=== PATIENT | male | born 1995 | race Caucasian/White ===

== ENCOUNTER → 2020-08-10 10:55 | Outpatient (BNVA) | payer OTHER, SELFPAY | PROVIDERS: PCP Internal Medicine | DX: Z13.89 Encounter for screening for other disorder (principal) | CPT/HCPCS: 36415; 82150; 82565; 84450; 84460; 84520; 85025 ==

== ENCOUNTER 2020-08-24 11:01 | Outpatient (REF) | payer OTHER, SELFPAY ==
[2020-08-24 13:42] LABS: Basophils Percent Auto 0.7 % (0-2); Eosinophils Absolute Auto 0.2 X10*3/uL (0.0-0.4); Eosinophils Percent Auto 3.5 % (0-4); Hematocrit 47.2 % (42-52); Hemoglobin 16.4 g/dl (14.0-18.0); Imm Gran Abs Auto 0.01 X10*3/uL (0.00-0.03); Imm Gran Pct Auto 0.2 % (0.0-0.4); Lymphocytes Absolute Auto 1.8 X10*3/uL (1.2-4.9); Lymphocytes Percent Auto 41.5 % (20-40); MANUAL DIFF FLAG NO; Mean Corpuscular HGB Conc 34.7 g/dl (31.0-36.0); Mean Corpuscular Hemoglobin 31.4 pg (27.0-33.0); Mean Corpuscular Volume 90.4 fL (80-98); Mean Platelet Volume 8.7 fL (9.4-12.4); Monocytes Absolute Auto 0.4 X10*3/uL (0.1-1.2); Neutrophils Absolute Auto 1.9 X10*3/uL (2.0-8.3); Neutrophils Percent Auto 44.1 % (45-73); Platelet Count 264 X10*3/uL (160-400); Red Blood Count 5.22 X10*6/uL (4.60-5.80); Red Cell Distribution Width 12.5 % (11.0-16.0); White Blood Count 4.3 X10*3/uL (4.8-10.8)
[2020-08-24 14:47] LABS: Amylase 55 U/L (28-100); Estimated Glomerular Filt Rate > 60
[2020-08-24 14:51] LABS: Alanine Aminotransferase 35 U/L (0-40); Aspartate Amino Transferase 25 U/L (5-37); Blood Urea Nitrogen 14 mg/dL (9-16); Estimated Glomerular Filt Rate > 60
== END 2020-08-24 11:02 | disposition home or self-care (01) ==
LOC: HO.EHI 11:01
PROVIDERS: Physician Assistant Medical; PCP Internal Medicine; Visit Provider Internal Medicine
DX: Z13.89 Encounter for screening for other disorder (principal)
CPT/HCPCS: 36415; 82150; 82565; 84450; 84460; 84520; 85025; 99213

== ENCOUNTER → 2020-09-08 11:00 | Outpatient (BNVA) | payer OTHER, SELFPAY | PROVIDERS: PCP Internal Medicine | DX: Z77.21 Contact with and (suspected) exposure to potentially hazardous body fluids (principal) | CPT/HCPCS: 84450; 84460; 87389; 99211 ==

== ENCOUNTER → 2020-10-27 10:28 | Outpatient (BNVA) | payer OTHER, SELFPAY | PROVIDERS: PCP Internal Medicine | DX: Z77.21 Contact with and (suspected) exposure to potentially hazardous body fluids (principal) | CPT/HCPCS: 84450; 84460; 86803; 87389; 99211 ==

== ENCOUNTER 2021-11-01 15:20 | Emergency (ER) | payer OTHER, SELFPAY ==
--- NOTE | ~2021-11-01 | US_ITS ---
EXAMINATION: US VENOUS ULTRASOUND WITH DOPPLER LOWER EXTREMITY, LEFT CLINICAL INFORMATION: Leg pain rule out DVT. COMPARISON: None TECHNIQUE: Ultrasound of the deep veins is performed from the hip to the calf with compression sonography and color and pulse Doppler assessment. Spectral analysis with color-flow imaging is performed. FINDINGS: There is normal venous compression and respiratory variation and augmented flow. The visualized common femoral vein, superficial femoral vein, profunda femoral vein, popliteal vein, and the trifurcation region shows no evidence of deep venous thrombosis. There is no significant popliteal fossa cyst. If the patient's symptoms persist, followup ultrasound in 5 days 7 days might be of value to exclude proximal propagation from a non-visualized calf vein. US/US venous duplex LE LT IMPRESSION: No DVT demonstrated in the left lower extremity.
[2021-11-01 15:59] VITALS: BP 146/89; PULSE 99; RESP 16; TEMP 36.6; O2SAT 98; BMI 39.5
--- NOTE | 2021-11-01 20:11 | ED.LOWEXIN ---
HPI - Extremity Injury (Lower) General Chief Complaint: Extremity Injury, Lower Stated Complaint: lower left leg pain Time Seen by Provider: 11/01/21 20:03 History of Present Illness HPI Narrative: Patient complains of tingling and occasional numb feeling going down his left lower leg accompanied some pain in the left posterior thigh and knee and lower leg There is no back pain there is no loss of strength or sensation Related Data Previous Rx's Medication Instructions Recorded prednisone 20 mg tablet 60 mg PO DAILY 3 Days #9 tab 11/01/21 Allergies Allergy/AdvReac Type Severity Reaction Status Date / Time No Known Allergies Allergy Verified 11/01/21 16:02 Review of Systems Review of Systems: Positive for left leg pain as well as occasional paresthesias Negatives are no fever no chills no dizziness no weakness no headache no neck pain no chest pain no abdominal pain no back pain no changes to bowel or bladder no dysuria no frequency no incontinence no muscle weakness no loss of sensation Yes all other systems are reviewed and are negative [facility] Past Medical History Source: nursing notes reviewed Medical History (Updated 11/02/21 @ 00:02 by Gilbert Hayes) No known health problems No known health problems Social History Social History Advance Directives: No Advance Directives Information Provided: Yes Physical Exam Vital Signs: Vital Signs: Last Vital Signs Temp 97.9 F 11/01/21 15:59 Pulse 87 11/01/21 20:21 Resp 18 11/01/21 20:21 BP 138/76 11/01/21 20:21 Pulse Ox 99 11/01/21 20:21 BMI result Body Mass Index 39.5 General appearance is no acute distress The head is normocephalic atraumatic Neck is supple nontender The back full range of motion Respiratory no distress Extremities full range of motion x4 Left leg exam there is some tenderness to the posterior thigh and posterior lower leg, skin was intact there is no edema there is normal neurovascular intact distal with good motor and sensation symmetric with the other side, he can walk on tiptoes and he could walk on his heels Neuro no focal motor sensory deficit Course Course Course Narrative: Patient had ultrasound which was negative for DVT, his exam symptoms and history are more consistent with a pinched nerve producing paresthesias He ambulates easily and comfortably and is discharged to follow with his doctor Discharge Plan Discharge Clinical Impression: Left leg pain, Left leg paresthesias Patient Disposition: Home, Self-Care Additional Instructions: Ultrasound did not show any blood clot in her leg For the tingling symptoms follow with primary doctor for further evaluation If you lose strength or control of bowel or bladder or any worse condition or any concerns return to the ER immediately Tingling sensations from a pinched nerve are sometimes helped but prednisone which may reduce inflammation so we are trying prednisone for a few days to see if it helps relieve the tingling sensation If you spend a long time sitting I recommend you get up stretch and move around as that might help relieve the tingling as well Prescriptions: New prednisone 20 mg tablet 60 mg PO DAILY 3 Days Qty: 9 RF: 0 Interventions: ED Discharge Assessment Last Done: 11/01/21 20:22 Discharge Date/Time: 11/01/21 20:23
[2021-11-01] MEDS: predniSONE 20 MG TABLET 60 MG PO (20:17)
[2021-11-01 20:21] VITALS: BP 138/76; PULSE 87; RESP 18; O2SAT 99
== END 2021-11-01 20:23 | disposition home or self-care (01) ==
PROVIDERS: Emergency Provider Emergency Medicine Emergency Medical Services
DX: M79.605 Pain in left leg (principal); R20.2 Paresthesia of skin
CPT/HCPCS: 93971; 99284

== ENCOUNTER 2021-11-05 14:56 | Emergency (ER) | payer OTHER, SELFPAY ==
--- NOTE | ~2021-11-05 | CT_ITS ---
EXAMINATION: CT ABDOMEN AND PELVIS WITH CONTRAST CLINICAL INFORMATION: Epigastric right upper quadrant pain COMPARISON: None TECHNIQUE: Multidetector volumetric images were obtained from the superior aspect of the liver through the pubic symphysis following administration 85 mL of Omnipaque 350 intravenous contrast. Sagittal and coronal reformatted images were obtained on the technologist's workstation. Oral contrast: No This CT examination was performed using dose optimization techniques as appropriate, variously including the following: *Automated exposure control *Adjustment of mA and/or kV according to patient size (this includes techniques or standardized protocols for targeted exams where dose is matched to indication/reason for exam; i.e. extremities or head) *Use of iterative reconstruction technique DLP: 1059 mGy-cm FINDINGS: LUNG BASES: The visualized lung bases are unremarkable. LIVER, GALLBLADDER, AND BILIARY TREE: Diffuse hepatic steatosis. No biliary ductal dilatation. Gallbladder distended but normal in appearance. PANCREAS: Unremarkable. SPLEEN: Unremarkable. ADRENAL GLANDS: Unremarkable. KIDNEYS AND URETERS: The kidneys are normal in size, shape, and attenuation. No hydronephrosis, hydroureter, or calculi seen. No perinephric stranding. BLADDER: Unremarkable. GASTROINTESTINAL TRACT: Stomach and small bowel are nondilated. Normal appendix. Scattered colonic diverticulosis without evidence of colitis or diverticulitis. ABDOMINAL WALL: No significant hernia is appreciated. LYMPH NODES: Normal. VASCULAR: Unremarkable. PELVIC VISCERA: Unremarkable. OSSEOUS STRUCTURES: Unremarkable. CT/CT abdomen pelvis w con IMPRESSION: No acute CT findings. Fleischner guidelines were followed.
[2021-11-05 16:24] VITALS: BP 147/91; PULSE 73; RESP 18; TEMP 36.8; O2SAT 100; BMI 39.5
[2021-11-05 21:21] LABS: MANUAL DIFF FLAG NO
[2021-11-05 21:22] LABS: Basophils Percent Auto 0.4 % (0-2); Eosinophils Absolute Auto 0.1 X10*3/uL (0.0-0.4); Eosinophils Percent Auto 1.6 % (0-4); Hematocrit 45.3 % (42.0-52.0); Hemoglobin 15.9 g/dl (14.0-18.0); Imm Gran Abs Auto 0.02 X10*3/uL (0.00-0.03); Imm Gran Pct Auto 0.3 % (0.0-0.4); Lymphocytes Absolute Auto 1.6 X10*3/uL (1.2-4.9); Lymphocytes Percent Auto 20.1 % (20-40); Mean Corpuscular HGB Conc 35.1 g/dl (31.0-36.0); Mean Corpuscular Hemoglobin 31.1 pg (27.0-33.0); Mean Corpuscular Volume 88.6 fL (80.0-98.0); Monocytes Absolute Auto 0.5 X10*3/uL (0.1-1.2); Monocytes Percent Auto 6.1 % (2-11); Neutrophils Absolute Auto 5.5 x10*3/uL (2.0-8.3); Neutrophils Percent Auto 71.5 % (45-73); Platelet Count 216 X10*3/uL (160-400); Red Blood Count 5.11 X10*6/uL (4.60-5.80); Red Cell Distribution Width 12.5 % (11.0-16.0); White Blood Count 7.7 X10*3/uL (4.8-10.8)
[2021-11-05 21:22] LABS: Appearance Urine CLEAR; Color Urine STRAW; Glucose Urine UA NEG (NEG); Leukocyte Esterase Urine NEG (NEG); Nitrite Urine NEG (NEG); Specific Gravity - Urine <= 1.005 (1.005-1.025); Urine Blood NEG (NEG); Urine Ketones NEG (NEG); Urine Protein NEG (NEG-TRACE)
[2021-11-05 21:41] LABS: Alanine Aminotransferase 64 U/L (0-40); Albumin Level 4.4 g/dL (3.5-5.0); Alkaline Phosphatase 51 U/L (39-117); Anion Gap 13 (12-20); Aspartate Amino Transferase 29 U/L (5-37); Bilirubin Total 2.5 mg/dL (0.0-1.0); Blood Urea Nitrogen 11 mg/dL (9-16); Calcium 9.6 mg/dL (8.4-10.2); Carbon Dioxide 27 mmol/L (22-29); Chloride 104 mmol/L (96-108); Creatinine Clr Calc Pharmacy 186.8; Estimated Glomerular Filt Rate > 60; Glucose Random 90 mg/dL (60-115); Lipase 28 U/L (8-78); Sodium 140 mmol/L (135-145); Total Protein 7.4 g/dL (6.5-8.0)
[2021-11-05 21:46] VITALS: BP 137/92; PULSE 89; RESP 16; TEMP 36.7; O2SAT 98
[2021-11-05 21:51] VITALS: BP 114/67; PULSE 58; RESP 12; TEMP 36.1; O2SAT 100
--- NOTE | 2021-11-05 21:52 | ED_ITS ---
HPI - Abdominal Pain General Chief Complaint: Abdominal Pain Stated Complaint: abd pain Time Seen by Provider: 11/05/21 21:44 Source: patient Mode of arrival: ambulatory Limitations: no limitations History of Present Illness HPI narrative: Patient complete emergency room complaining of epigastric and right upper quadrant pain for 24 hours. Patient states that the pain is constant, radiating from the epigastrium towards the right upper quadrant. Patient states that he has not had an appetite since yesterday. Denies vomiting, diarrhea or fever. Patient states that since yesterday he has been laying down in position due to the pain, yesterday the pain was 10, at this moment 05/14. Related Data Previous Rx's Medication Instructions Recorded prednisone 20 mg tablet 60 mg PO DAILY 3 Days #9 tab 11/01/21 omeprazole 20 mg capsule,delayed 20 mg PO DAILY #14 cap 11/05/21 release Allergies Allergy/AdvReac Type Severity Reaction Status Date / Time No Known Allergies Allergy Verified 11/05/21 16:24 Review of Systems Review of Systems Constitutional : No Weight loss, No Fever, No Chills, No Night Sweats, No Fatigue, No Malaise ENT/Mouth : No Hearing loss, No Ear Pain, No Nasal Congestion, No Sinus Pain, No Hoarseness, No sore throat, No Rhinorrhea, No Swallowing Difficulty Eyes: No Eye Pain, No Swelling, No Redness, No Foreign Body, No Discharge, No Vision Changes Cardiovascular : No Chest Pain, No SOB, No Dyspnea on Exertion, No Orthopnea, No Edema, No Palpitations Respiratory : No Cough, No Sputum, No Wheezing, No Smoke Exposure, No Dyspnea Gastrointestinal : No Nausea, No Vomiting, No Diarrhea, No Constipation, complaining of epigastric pain, radiating from the epigastrium to the right upper quadrant. No Hematochezia, No Melena Genitourinary : no irregular bleeding, No Dysuria, No Urinary Frequency, No Hem aturia, No Urinary Incontinence, No Urgency, No Flank Pain, No Urinary Flow Changes, No Hesitancy Musculoskeletal : No joint pain, No Myalgias, No Joint Swelling Skin : No Skin Lesions, No rash Neuro : No Weakness, No Numbness, No Paresthesias, No Loss of Consciousness, No Dizziness, No Headache Psych : No Anxiety/Panic, No Depression, No SI/HI/AH/VH, No Social Issues, Heme/Lymph: No Bruising, No Bleeding,No Lymphadenopathy Endocrine : No Polyuria, No Polydipsia, No Temperature Intolerance Physical Exam Vital Signs: Vital Signs: Last Vital Signs Temp 96.9 F 11/05/21 21:51 Pulse 58 11/05/21 21:51 Resp 16 11/05/21 22:23 BP 114/67 11/05/21 21:51 Pulse Ox 100 11/05/21 21:51 BMI result Body Mass Index 39.5 Const: Other: Appearance: Alert. Oriented X3. No acute distress. Well- appearing, does not seem uncomfortable Eyes: Pupils equal, round and reactive to light. ENT: Pharynx normal. Neck: Normal inspection. Neck supple. No lymph nodes noted. No crepitus CVS: Normal heart rate and rhythm. Pulses normal. Normal S1 and S2 Respiratory: No respiratory distress. Breath sounds normal. No Wheezing. No rales Abdomen: Soft, negative Almeida sign, mild to moderate discomfort on palpation in the epigastric area. No rigidity. No distention. Skin: Skin warm and dry. Normal skin color. Normal skin turgor. Extremities: No lower extremity edema. Lacerations. No Rash Neuro: Oriented X 3. No motor deficit. No sensory deficit. Moving all extermities. No slurred speech. Course Course Course Narrative: I discussed the labs and CT scan with the patient, no acute findings. Patient was given a GI cocktail. Patient likely having gastritis versus peptic ulcer disease. MDM - Abdominal Pain Lab Data Result diagrams: 11/05/21 21:16 11/05/21 21:16 Labs: Lab Results 11/05/21 11/05/21 11/05/21 Range/Units 21:15 21:16 21:16 WBC 7.7 (4.8-10.8) X10*3/uL RBC 5.11 (4.60-5.80) X10*6/uL Hgb 15.9 (14.0-18.0) g/dl Hct 45.3 (42.0-52.0) % MCV 88.6 (80.0-98.0) fL MCH 31.1 (27.0-33.0) pg MCHC 35.1 (31.0-36.0) g/dl RDW 12.5 (11.0-16.0) % Plt Count 216 (160-400) X10*3/uL MPV 8.0 L (9.4-12.4) fL Immature Gran % (Auto) 0.3 (0.0-0.4) % Neut % (Auto) 71.5 (45-73) % Lymph % (Auto) 20.1 (20-40) % [place] % (Auto) 6.1 (2-11) % Eos % (Auto) 1.6 (0-4) % Baso % (Auto) 0.4 (0-2) % Lymph # (Auto) 1.6 (1.2-4.9) X10*3/uL [place] # (Auto) 0.5 (0.1-1.2) X10*3/uL Eos # (Auto) 0.1 (0.0-0.4) X10*3/uL Baso # (Auto) 0.0 (0.0-0.2) X10*3/uL Abs Immat Gran (auto) 0.02 (0.00-0.03) X10*3/uL Absolute Neuts (auto) 5.5 (2.0-8.3) x10*3/uL Absolute Nucleated RBC 0.000 (0.0-0.012) X10*3/uL Nucleated RBC % (auto) 0.0 (0.0-0.2) /100WBC Sodium 140 (135-145) mmol/L Potassium 4.0 (3.3-5.1) mmol/L Chloride 104 (96-108) mmol/L Carbon Dioxide 27 (22-29) mmol/L Anion Gap 13 (12-20) BUN 11 (9-16) mg/dL Creatinine 0.86 (0.5-1.4) mg/dL Estim Creat Clear Calc 186.8 Estimated GFR > 60 Random Glucose 90 (60-115) mg/dL Calcium 9.6 (8.4-10.2) mg/dL Total Bilirubin 2.5 H (0.0-1.0) mg/dL AST 29 D (5-37) U/L ALT 64 H (0-40) U/L Alkaline Phosphatase 51 (39-117) U/L Total Protein 7.4 (6.5-8.0) g/dL Albumin 4.4 (3.5-5.0) g/dL Lipase 28 (8-78) U/L Urine Color STRAW Urine Appearance CLEAR Urine pH 6.0 (5.0-8.0) Ur Specific Alicia <= 1.005 (1.005-1.025) Urine Protein NEG (NEG-TRACE) MG/DL Urine Glucose (UA) NEG (NEG) MG/DL Urine Ketones NEG (NEG) MG/DL Urine Blood NEG (NEG) Urine Nitrite NEG (NEG) Ur Leukocyte Esterase NEG (NEG) Discharge Plan Discharge Clinical Impression: Abdominal pain Patient Disposition: Home, Self-Care Instructions: Abdominal Pain (ED) Additional Instructions: Please follow-up with your primary care physician tomorrow. If you have any worsening or new symptoms, please return to the emergency room or call 911 Prescriptions: New omeprazole 20 mg capsule,delayed release(DR/EC) 20 mg PO DAILY Qty: 14 RF: 0 No Action prednisone 20 mg tablet 60 mg PO DAILY 3 Days Qty: 9 RF: 0 PMFSH Past Medical History Medical History No known health problems No known health problems Social History Social History Advance Directives: No Advance Directives Information Provided: Yes
[2021-11-05 22:23] VITALS: RESP 16
[2021-11-05] MEDS: Morphine Sulfate 2 MG/ML CARTRIDGE IM (22:23)
[2021-11-05] MEDS: iohexoL 350 MG/ML 100 ML INFUS..BTL 85 ML IV (22:31)
[2021-11-05] MEDS: Magnesium Hydrox/Alum Hydrox 30 ML ORAL.SUSP PO (23:21)
[2021-11-05] MEDS: Lidocaine HCl Viscous 2 % 15 ML SOLUTION MUCOUS MEM (23:21)
[2021-11-05 23:23] VITALS: BP 130/80; PULSE 87; RESP 16; O2SAT 99
== END 2021-11-05 23:33 | disposition home or self-care (01) ==
PROVIDERS: Emergency Provider Emergency Medicine; PCP Internal Medicine
DX: R10.11 Right upper quadrant pain (principal); Z79.899 Other long term (current) drug therapy
CPT/HCPCS: 36415; 74177; 80053; 81003; 83690; 85025; 96372; 99284; J2270; Q9967

== ENCOUNTER 2021-11-07 11:16 | Outpatient (REF) | payer OTHER, SELFPAY ==
[2021-11-07 12:30] LABS: Binax Internal Control QC Valid; Binax Lot number: 9864; Binax Now Covid-19 Ag Positive (Negative)
== END 2021-11-07 11:17 | disposition home or self-care (01) ==
LOC: HO.LAB 11:16
PROVIDERS: Visit Provider Internal Medicine
DX: Z20.822 Contact with and (suspected) exposure to COVID-19 (principal)
CPT/HCPCS: 36415; C9803

== ENCOUNTER 2022-11-23 06:05 | Outpatient (REF) | payer OTHER, SELFPAY ==
[2022-11-23 06:27] LABS: MANUAL DIFF FLAG NO
[2022-11-23 07:44] LABS: Basophils Percent Auto 0.6 % (0-2); Eosinophils Absolute Auto 0.2 X10*3/uL (0.0-0.4); Eosinophils Percent Auto 3.4 % (0-4); Hematocrit 43.9 % (42.0-52.0); Hemoglobin 15.1 g/dl (14.0-18.0); Imm Gran Abs Auto 0.01 X10*3/uL (0.00-0.03); Imm Gran Pct Auto 0.2 % (0.0-0.4); Lymphocytes Absolute Auto 2.1 X10*3/uL (1.2-4.9); Lymphocytes Percent Auto 45.5 % (20-40); Mean Corpuscular HGB Conc 34.4 g/dl (31.0-36.0); Mean Corpuscular Hemoglobin 30.4 pg (27.0-33.0); Mean Corpuscular Volume 88.3 fL (80.0-98.0); Mean Platelet Volume 8.9 fL (9.4-12.4); Monocytes Absolute Auto 0.5 X10*3/uL (0.1-1.2); Monocytes Percent Auto 10.6 % (2-11); Neutrophils Absolute Auto 1.9 x10*3/uL (2.0-8.3); Neutrophils Percent Auto 39.7 % (45-73); Platelet Count 247 X10*3/uL (160-400); Red Blood Count 4.97 X10*6/uL (4.60-5.80); Red Cell Distribution Width 12.5 % (11.0-16.0); White Blood Count 4.7 X10*3/uL (4.8-10.8)
[2022-11-23 08:07] LABS: Appearance Urine Clear; Color Urine Yellow; Glucose Urine UA Negative (Negative); Leukocyte Esterase Urine Negative (Negative); Nitrite Urine Negative (Negative); PH 6.5 (5.0-9.0); Urine Blood Negative (Negative); Urine Ketones Negative (Negative); Urine Protein Negative (Neg-Trace)
[2022-11-23 08:23] LABS: Alanine Aminotransferase 25 U/L (0-40); Albumin Level 4.2 g/dL (3.5-5.0); Alkaline Phosphatase 47 U/L (39-117); Anion Gap 12 (12-20); Aspartate Amino Transferase 23 U/L (5-37); Bilirubin Total 2.5 mg/dL (0.0-1.0); Blood Urea Nitrogen 14 mg/dL (9-16); Calcium 9.1 mg/dL (8.4-10.2); Carbon Dioxide 26 mmol/L (22-29); Chloride 102 mmol/L (96-108); Cholesterol 134 mg/dL; Estimated Glomerular Filt Rate > 60; Glucose Fasting 93 mg/dL (60-99); HDL Cholesterol 45 mg/dL; LDL Cholesterol Calculated 73 mg/dl; Potassium 4.2 mmol/L (3.3-5.1); Sodium 136 mmol/L (135-145); Total Protein 6.7 g/dL (6.5-8.0); Triglycerides 81 mg/dL
[2022-11-23 08:41] LABS: TSH reflex Free T4 1.42 uIU/mL (0.32-4.0)
== END 2022-11-23 06:06 | disposition home or self-care (01) ==
LOC: HO.LAB 06:05
PROVIDERS: PCP Nurse Practitioner Family; Visit Provider Nurse Practitioner Family
DX: Z00.00 Encounter for general adult medical examination without abnormal findings (principal); R17 Unspecified jaundice
CPT/HCPCS: 36415; 80053; 80061; 81003; 84443; 85025

== ENCOUNTER 2022-12-15 14:18 | Outpatient (REF) | payer OTHER, SELFPAY ==
[2022-12-15 15:12] LABS: Bilirubin Direct 0.4 mg/dL (0.0-0.5); Bilirubin Total 2.1 mg/dL (0.0-1.0)
== END 2022-12-15 14:19 | disposition home or self-care (01) ==
LOC: HO.LAB 14:18
PROVIDERS: PCP Nurse Practitioner Family; Visit Provider Nurse Practitioner Family
DX: R17 Unspecified jaundice (principal)
CPT/HCPCS: 36415; 82247; 82248

== ENCOUNTER 2023-01-15 14:48 | Outpatient (REF) | payer OTHER, SELFPAY ==
[2023-01-15 17:37] LABS: Immature Retic Fraction 6.1 % (2.3-13.4); Retic HGB Equivalent 36.5 pg (30.0-35.0); Reticulocyte Percent 1.3 % (0.5-1.8); Reticulocytes Absolute 0.065 X10*6/uL (0.026-0.095)
[2023-01-15 18:29] LABS: Alanine Aminotransferase 21 U/L (0-40); Albumin Level 4.6 g/dL (3.5-5.0); Alkaline Phosphatase 53 U/L (39-117); Aspartate Amino Transferase 20 U/L (5-37); Bilirubin Direct 0.5 mg/dL (0.0-0.5); Bilirubin Total 3.2 mg/dL (0.0-1.0); Lactate Dehydrogenase 162 U/L (118-273)
[2023-01-17 16:39] LABS: Haptoglobin 82 mg/dL (43-212)
[2023-01-17 16:43] LABS: Immunoglobulin A 222 mg/dL (47-310)
[2023-01-18 12:03] LABS: Transglutaminase IgA <1.0 U/mL
== END 2023-01-15 14:49 | disposition home or self-care (01) ==
LOC: HO.LAB 14:48
PROVIDERS: PCP Nurse Practitioner Family; Visit Provider Internal Medicine
DX: E80.6 Other disorders of bilirubin metabolism (principal); R10.9 Unspecified abdominal pain; K76.0 Fatty (change of) liver, not elsewhere classified
CPT/HCPCS: 36415; 80076; 82784; 83010; 83615; 85045; 86364

== ENCOUNTER 2023-02-01 08:53 | Outpatient (REF) | payer OTHER, SELFPAY ==
--- NOTE | ~2023-02-01 | US_ITS ---
EXAMINATION: US ABDOMEN COMPLETE CLINICAL INFORMATION: Other disorders of bilirubin metabolism. COMPARISON: CT abdomen and pelvis with contrast 11/05/2021. TECHNIQUE: Real-time imaging of the abdominal viscera. FINDINGS: PANCREAS: Normal. ABDOMINAL AORTA: The proximal, mid, and distal segments are normal in caliber. INFERIOR VENA CAVA: Visualized portions are normal. LIVER: The liver is normal in size. The liver contour is normal. There is slightly increased liver parenchymal echogenicity. No focal hepatic lesion. There is no intrahepatic biliary duct dilatation seen. GALLBLADDER: Normal. The gallbladder is physiologically distended without evidence of stones, sludge, polyps, wall thickening or pericholecystic fluid. COMMON BILE DUCT: Normal in caliber measuring 0.4 cm in diameter. RIGHT KIDNEY: Normal. No hydronephrosis. No renal calculi or focal parenchymal lesions. The kidney measures 12.0 cm in maximum dimension. LEFT KIDNEY: Normal. No hydronephrosis. No renal calculi or focal parenchymal lesions. The kidney measures 11.0 cm in maximum dimension. SPLEEN: Normal. The spleen measures 11.3 cm in maximum dimension. FREE FLUID: None. US/US abdomen complete IMPRESSION: There is slight generalized increase in hepatic echotexture, consistent with fatty infiltration or hepatocellular disease. Please correlate clinically. No focal hepatic mass or intrahepatic biliary dilatation is seen.
== END 2023-02-01 08:54 | disposition home or self-care (01) ==
LOC: HO.US 08:53
PROVIDERS: Visit Provider Internal Medicine
DX: E80.6 Other disorders of bilirubin metabolism (principal)
CPT/HCPCS: 76700

== ENCOUNTER 2023-04-17 15:15 | Outpatient (REF) | payer OTHER, SELFPAY ==
[2023-04-17 18:19] LABS: Alanine Aminotransferase 21 U/L (0-40); Albumin Level 4.3 g/dL (3.5-5.0); Alkaline Phosphatase 52 U/L (39-117); Aspartate Amino Transferase 19 U/L (5-37); Bilirubin Direct 0.5 mg/dL (0.0-0.5); Bilirubin Total 2.3 mg/dL (0.0-1.0); Iron 82 mcg/dL (45-160); Percent Iron Saturation 34 % (15-50); Total Iron Binding Capacity 243 mcg/dL (228-428); Total Protein 7.2 g/dL (6.5-8.0); Unsaturated Iron Binding 161 ug/dL
[2023-04-17 18:35] LABS: Ferritin 149 ng/mL (20-250)
[2023-04-20 19:48] LABS: Ceruloplasmin 23 mg/dL (18-36)
[2023-04-24 15:18] LABS: Anti Nuclear Antibody Screen NEGATIVE (NEGATIVE)
[2023-04-27 16:13] LABS: Smooth Muscle Antibody <20 U (<20)
[2023-04-29 14:18] LABS: Liver Kidney Microsomal Ab <=20.0 U (<=20.0)
== END 2023-04-17 15:16 | disposition home or self-care (01) ==
LOC: HO.LAB 15:15
PROVIDERS: PCP Nurse Practitioner Family; Visit Provider Internal Medicine
DX: E80.6 Other disorders of bilirubin metabolism (principal); K76.0 Fatty (change of) liver, not elsewhere classified; R53.83 Other fatigue
CPT/HCPCS: 36415; 80076; 82306; 82390; 82728; 83540; 86015; 86038; 86376

== ENCOUNTER 2023-08-01 14:49 | Outpatient (AMB) | payer OTHER, SELFPAY ==
--- NOTE | 2023-08-01 14:50 | A.OFFPC_ITS ---
Vital Signs 08/01/23 14:52 08/01/23 15:17 Weight 250 lb BP 130/90 H 118/70 Blood Pressure Location Lt brachial Lt brachial Position Sitting Sitting Pulse 84 Pulse Source Pulse Oximeter Pulse Oximetry (%) 99 Oxygen Delivery Method Room Air Intake Visit Reasons: back pain/leg numbness Intake Note: left leg numbness and back pain. Allergies No Known Allergies Allergy (Verified 08/01/23 14:53) Medication List - Last Reconciled 08/01/23 by STEVE Urbina-RAI cetirizine (Zyrtec) 10 mg PO DAILY PRN omeprazole 20 mg PO DAILY Tobacco use date assessed: 11/22/22 HPI back pain/leg numbness HPI Details Pt reports lower back pain with radicular symptoms down his LLE (numbness and pain). He states that the pain to his LLE is more dull and not shooting pain. Pt reports tweaking his back in the past which made his symptoms worse. He stretches at home and reports that this helps somewhat. Denies any signs of cauda equina. Will order XR. Will send prednisone and cyclobenzaprine. Recommended pt continue stretching and use warm moist heat to the area. [facility] Medical History No known health problems No known health problems Surgical History History of esophagogastroduodenoscopy (EGD) Family History Father Substance use disorder Social History Housing: House Patient Tobacco Use Status: Never used Tobacco e-Cigarette/Vaping Use: Never Used Second Hand Smoke Exposure: No service: No Current occupational status: employed Current occupation: [employer] Current occupational exposures/hazards: Yes Cognitive needs: No Hearing needs: No Vision needs: No Questionnaire Thrive Questionnaire Date Thrive assessed: 11/22/22 I am a: Patient What is your living situation today?: I have a steady place to live Within the past 12 months, did the food you bought not last and you didn't have the money to get more?: Never true Within the past 12 months, did you worry whether your food would run out before you got money to buy more?: Never true AUDIT C Alcohol Use Questionnaire (AUDIT-C) 1. How often do you have a drink containing alcohol?: Never 3. How often do you have six or more drinks on one occasion?: Never Total Score: 0 CIERRA-7 AMB Questionnaire CIERRA-7 Date CIERRA - 7 assessed: 11/22/22 Feeling nervous, anxious, or on edge: 2 = More than half the days Not being able to stop or control worryin = More than half the days Worrying too much about different things: 0 = Not at all Trouble relaxin = Not at all Being so restless that it is hard to sit still: 0 = Not at all Becoming easily annoyed or irritable: 0 = Not at all Feeling afraid as if something awful might happen: 1 = Several days Total CIERRA-7 score (0-4 normal; 5-9 mild; 10-14 moderate; 15-21 severe): 5 Source: Developed by Drs. Salvador Sofia, Concetta Young, Paul Powell and colleagues, with an educational willi from [employer]. Review of Systems Const Reports as per HPI Physical exam (Primary Care) Vital Signs: Last Vital Signs Pulse 84 08/01/23 14:52 BP 118/70 08/01/23 15:17 Pulse Ox 99 08/01/23 14:52 Oxygen Delivery Method Room Air 08/01/23 14:52 Tobacco/Smoking Status: Tobacco use Status Tobacco use date assessed 11/22/22 08/01/23 14:51 Patient Tobacco Use Status Never used Tobacco 08/01/23 14:51 e-Cigarette/Vaping Use Never Used 08/01/23 14:51 Thrive Assessment: Date of Thrive Assessment Date Thrive assessed 11/22/22 08/01/23 14:51 Const General: cooperative Orientation/consciousness: patient oriented x3 Back/Spine/Pelvis Other: able to heel and toe walk, slight radiculopathy with LLE raises, reports tightness Neuro General: patient oriented x3 Psych Appearance: grossly normal Mental Status: mental status grossly normal Speech and movement: Normal speech and movement present Affect: normal affect Attitude: cooperative Thought process: Normal thought process present Thought content: Normal thought content present Insight: Good insight present (Psych) Judgement: Good judgement present (Psych) Assessment and Plan Assessment & Plan (1) Lumbar back pain: Code(s): M54.50 - Low back pain, unspecified Plan: XR ordered, prednisone and muscle relaxer sent Plan The patient agreed to the use of a medical coding instructor for this encounter. Scribed for ZARINA Ashraf by Zamzam Harvey medical coding instructor, on 08/01/2023 at 15:10 EST. Orders: Orders XR lumbar spine 2-3V Today M54.50 - Low back pain, unspecified Medications: New prednisone 50 mg PO DAILY 5 tabs 0RF 5 days cyclobenzaprine 10 mg PO BEDTIME 14 tabs 0RF 14 days Coding Level of Care Code Est Pt Level 3 (72818) Diagnoses Lumbar back pain M54.50
[2023-08-01 14:52] VITALS: BP 130/90; PULSE 84; O2SAT 99
[2023-08-01 15:17] VITALS: BP 118/70
== END 2023-08-01 16:12 | disposition home or self-care (01) ==
PROVIDERS: PCP Nurse Practitioner Family; Visit Provider Nurse Practitioner Family
DX: M54.50 Low back pain, unspecified (principal)
CPT/HCPCS: 99213

== ENCOUNTER 2023-08-01 15:23 | Outpatient (REF) | payer OTHER, SELFPAY ==
--- NOTE | ~2023-08-01 | XR_ITS ---
EXAMINATION: XR LUMBOSACRAL SPINE CLINICAL INFORMATION: Lower back pain. COMPARISON: None available. TECHNIQUE: AP and lateral views of the lumbar spine and lateral view of the lumbosacral junction. FINDINGS: Vertebral body heights are normal. At L5-S1, there is moderate to marked disc space narrowing, a 4 mm retrolisthesis, anterior spondylosis and facet arthropathy. The remaining disc spaces are relatively well-maintained. No acute fracture or spondylolisthesis is seen. The posterior elements are intact. The paravertebral soft tissues are unremarkable. XR/XR lumbar spine 2-3V IMPRESSION: L5-S1, there is moderately severe degenerative disc disease and facet arthropathy.
== END 2023-08-01 15:24 | disposition home or self-care (01) ==
LOC: HO.HMGCX 15:23
PROVIDERS: PCP Nurse Practitioner Family; Visit Provider Nurse Practitioner Family
DX: M54.50 Low back pain, unspecified (principal)
CPT/HCPCS: 72100

== ENCOUNTER 2023-08-03 15:09 | Outpatient (REF) | payer OTHER, SELFPAY ==
[2023-08-03 15:19] LABS: MANUAL DIFF FLAG NO
[2023-08-03 15:30] LABS: Basophils Percent Auto 0.6 % (0-2); Eosinophils Absolute Auto 0.1 X10*3/uL (0.0-0.4); Eosinophils Percent Auto 1.9 % (0-4); Hematocrit 41.4 % (42.0-52.0); Hemoglobin 14.3 g/dl (14.0-18.0); Imm Gran Abs Auto 0.02 X10*3/uL (0.00-0.03); Imm Gran Pct Auto 0.4 % (0.0-0.4); Lymphocytes Absolute Auto 2.2 X10*3/uL (1.2-4.9); Lymphocytes Percent Auto 42.6 % (20-40); Mean Corpuscular HGB Conc 34.5 g/dl (31.0-36.0); Mean Corpuscular Hemoglobin 30.6 pg (27.0-33.0); Mean Corpuscular Volume 88.5 fL (80.0-98.0); Mean Platelet Volume 8.1 fL (9.4-12.4); Monocytes Absolute Auto 0.5 X10*3/uL (0.1-1.2); Monocytes Percent Auto 8.7 % (2-11); Neutrophils Absolute Auto 2.4 x10*3/uL (2.0-8.3); Neutrophils Percent Auto 45.8 % (45-73); Platelet Count 209 X10*3/uL (160-400); Red Blood Count 4.68 X10*6/uL (4.60-5.80); Red Cell Distribution Width 12.2 % (11.0-16.0); White Blood Count 5.2 X10*3/uL (4.8-10.8)
[2023-08-03 16:03] LABS: Alanine Aminotransferase 22 U/L (0-40); Albumin Level 4.3 g/dL (3.5-5.0); Alkaline Phosphatase 45 U/L (39-117); Anion Gap 14 (12-20); Aspartate Amino Transferase 27 U/L (5-37); Bilirubin Total 2.1 mg/dL (0.0-1.0); Blood Urea Nitrogen 11 mg/dL (9-16); Calcium 9.5 mg/dL (8.4-10.2); Carbon Dioxide 25 mmol/L (22-29); Chloride 106 mmol/L (96-108); Estimated Glomerular Filt Rate > 60; Glucose Random 68 mg/dL (60-115); Potassium 3.9 mmol/L (3.3-5.1); Sodium 141 mmol/L (135-145)
[2023-08-03 16:18] LABS: TSH reflex Free T4 1.02 uIU/mL (0.32-4.0)
[2023-08-03 16:23] LABS: Appearance Urine Clear; Color Urine Yellow; Glucose Urine UA Negative (Negative); Leukocyte Esterase Urine Negative (Negative); Nitrite Urine Negative (Negative); PH 6.5 (5.0-9.0); Urine Blood Negative (Negative); Urine Ketones Negative (Negative); Urine Protein Negative (Neg-Trace)
== END 2023-08-03 15:10 | disposition home or self-care (01) ==
LOC: HO.LAB 15:09
PROVIDERS: PCP Nurse Practitioner Family; Visit Provider Nurse Practitioner Family
DX: R42 Dizziness and giddiness (principal)
CPT/HCPCS: 36415; 80053; 81003; 84443; 85025

== ENCOUNTER 2023-10-22 10:51 | Outpatient (AMB) | payer OTHER, SELFPAY ==
--- NOTE | 2023-10-22 10:56 | MHC.OFFVIS ---
Intake Intake Visit Reasons: Dysuria Intake Note: New Patient presents for initial visit for dysuria Urology Medications: none Blood Thinner: none PVR: 0ml's Hand Baseball Sewer Required: No Accompanied by: Self / Same As Patient Allergies No Known Allergies Allergy (Verified 10/22/23 12:49) Medication List - Last Reconciled 10/22/23 by ZARINA Barnett cetirizine (Zyrtec) 10 mg PO DAILY PRN meloxicam 15 mg PO DAILY 30 days omeprazole 20 mg PO DAILY prednisone 20 mg PO DAILY 5 days sulfamethoxazole-trimethoprim 800-160 mg (Bactrim DS) 1 tab PO BID 14 days HPI HPI Comments History of Present Illness Details Joselito is a very pleasant 27-year-old male patient of Dr. Mayberry. He has a past medical history of Gilbert's syndrome and degenerative disc disease. He presents to the office today as a new patient for dysuria. In discussion with the patient today reports noting over the last 6 months to be experiencing urinary urgency and dysuria. He describes feeling a burning at the tip of his penis during the end of his urination. He otherwise denies incontinence, nocturia, hematuria, foul smelling urine, changes to urinary stream, flank pain, fever, and or chills. Discussed at length potential causes of lower urinary tract symptoms patient is experiencing. MADHAV offered however deferred. Discussed potential for prostatitis given urinary symptoms patient is reporting. In office urinalysis results reviewed with the patient today. PVR 0 mL. He otherwise denies any other issues or concerns at this time. [facility] Medical History Degenerative disc disease at L5-S1 level [place] syndrome No known health problems No known health problems Surgical History History of esophagogastroduodenoscopy (EGD) Family History Father Substance use disorder Social History Housing: House Patient Tobacco Use Status: Never used Tobacco e-Cigarette/Vaping Use: Never Used Second Hand Smoke Exposure: No service: No Current occupational status: employed Current occupation: [employer] Current occupational exposures/hazards: Yes Cognitive needs: No Hearing needs: No Vision needs: No Review of Systems Const All systems reviewed & are unremarkable except as noted in HPI and below Physical Exam Const General: cooperative, healthy appearing, comfortable, no acute distress, well developed, alert and awake Orientation/consciousness: patient oriented x3 Limitations: no limitations HEENT Head: Yes normal to inspection, Yes normocephalic and Yes atraumatic Ears: hearing grossly normal bilaterally Eyes General: appearance normal, both eyes and all related structures Neck Neck: Yes normal visual inspection and Yes trachea midline Chest Chest palpation & inspection: normal inspection of the chest Resp Effort & Inspection: normal respiratory effort and able to speak in complete sentences Cardio Rate: regular rate GI Inspection: Yes normal to inspection General: Yes no CVA tenderness Back/Spine/Pelvis Back: no CVA tenderness Skin General skin exam: no rashes or lesions noted Neuro General: patient oriented x3 Extrem General: Yes normal to inspection Psych Appearance: grossly normal and well kempt Mental Status: mental status grossly normal Speech and movement: Normal speech and movement present and Clear speech present Affect: normal affect Attitude: cooperative Thought process: Normal thought process present Thought content: Normal thought content present Insight: Good insight present (Psych) Judgement: Good judgement present (Psych) Office Procedures Post Void Residual Post Residual Void Post Void Residual (PVR): 0 21105-Lnzh Void Residual by ultrasound Results AMB Urinalysis, Automated UA Leukoctes 0 Pamela/uL Last Edit by [employer] on 10/22/23 11:17 UA Nitrite Negative Last Edit by [employer] on 10/22/23 11:17 UA Urobilinogen 0.2 mg/dL Last Edit by [employer] on 10/22/23 11:17 UA Protein 0 mg/dL Last Edit by [employer] on 10/22/23 11:17 UA pH 7.0 Last Edit by [employer] on 10/22/23 11:17 UA Blood 0 Willian/uL Last Edit by [employer]ri[employer] on 10/22/23 11:17 UA Specific Cando 1.010 Last Edit by Fabri[employer] on 10/22/23 11:17 UA Ketone Negative Last Edit by [employer]ri[employer] on 10/22/23 11:17 UA Bilirubin 0 mg/dL Last Edit by Galo Jauregui on 10/22/23 11:17 UA Glucose 0 mg/dL Last Edit by Galo Jauregui on 10/22/23 11:17 Results Reviewed Results Reviewed: Laboratory Last Values Urine pH (Auto) 7.0 10/22/23 10:58 Specific Cando (Auto) 1.010 10/22/23 10:58 Urine Protein (Auto) 0 mg/dL 10/22/23 10:58 Glucose (UA)(Auto) 0 mg/dL 10/22/23 10:58 Urine Ketones (Auto) Negative 10/22/23 10:58 Urine Blood (Auto) 0 Willian/uL 10/22/23 10:58 Urine Nitrite (Auto) Negative 10/22/23 10:58 Urine Bilirubin (Auto) 0 mg/dL 10/22/23 10:58 Urine Urobilinogen (Auto) 0.2 mg/dL 10/22/23 10:58 Leukocyte Esterase (Auto) 0 Pamela/uL 10/22/23 10:58 Assessment & Plan Assessment & Plan (1) Urinary frequency: Code(s): R35.0 - Frequency of micturition (2) Dysuria: Code(s): R30.0 - Dysuria (3) Urinary urgency: Code(s): R39.15 - Urgency of urination (4) Prostatitis: Code(s): N41.9 - Inflammatory disease of prostate, unspecified Plan In office urinalysis results reviewed with the patient today; as noted above. PVR 0 mL. Start meloxicam, prednisone, and Bactrim as discussed and prescribed. Discussed at length potential causes for lower urinary tract symptoms patient is experiencing. Discussed, educated, and stressed the importance of drinking plenty of water daily. MADHAV offered however deferred Discussed potential need for prostate massage in the near future if symptoms persist and/or worsen. Follow-up in 1 month with PVR; if not sooner with any issues, concerns, and or questions. Orders: Orders AMB Post Void Residual by ultrasound Today R35.0 - Frequency of micturition AMB Urinalysis Automated Today Z13.9 - Encounter for screening, unspecified Medications: New meloxicam 15 mg PO DAILY 30 days 30 tabs 0RF R10.31 - Right lower quadrant pain, R10.32 - Left lower quadrant pain prednisone 20 mg PO DAILY 5 days 5 tabs 0RF N20.0 - Calculus of kidney sulfamethoxazole-trimethoprim 800-160 mg (Bactrim DS) 1 tab PO BID 14 days 28 tabs 0RF N39.0 - Urinary tract infection, site not specified Patient Instructions: The patient had an opportunity to ask questions regarding the treatment plan. All questions were answered. Physical exam, labs, and imaging were discussed and reviewed in detail. As well as risks, benefits, and discussion of treatment choices. No major barriers to understanding were identified. The patient expressed understanding and agreement with the above treatment plan. The patient was made aware they should contact our office by phone for worsening of their current condition, the appearance of new symptoms, or with any questions or concerns. Compliance is encouraged with any medications and follow up testing that is ordered. It is a privilege to be allowed the opportunity to participate in? your urological care.? Again, if you have any questions or concerns If you have any questions or concerns please do not hesitate to contact me. The office is [phone]. This note is constructed using voice recognition software. While every effort has been made to ensure accuracy gun profiler errors may have been included. Yours sincerely, STEVE Barnett-RAI Coding Level of Care Code New Pt Level 4 (73164) Diagnoses Urinary frequency R35.0 Dysuria R30.0 Urinary urgency R39.15 Prostatitis N41.9 CPT Codes Post Residual Void - PVR CPT Code: 96580-Fbht Void Residual by ultrasound ([id number])
== END 2023-10-22 11:33 | disposition home or self-care (01) ==
PROVIDERS: PCP Nurse Practitioner Family; Visit Provider Nurse Practitioner Family
DX: R35.0 Frequency of micturition (principal); R30.0 Dysuria; R39.15 Urgency of urination; N41.9 Inflammatory disease of prostate, unspecified; Z13.9 Encounter for screening, unspecified
CPT/HCPCS: 99204

== ENCOUNTER → 2023-10-22 10:51 | Outpatient (BNVA) | payer OTHER, SELFPAY | PROVIDERS: PCP Nurse Practitioner Family; Visit Provider Nurse Practitioner Family | DX: R30.0 Dysuria (principal); R35.0 Frequency of micturition; R39.15 Urgency of urination; N41.9 Inflammatory disease of prostate, unspecified | CPT/HCPCS: 51798; 81003 ==

== ENCOUNTER 2023-11-22 15:36 | Outpatient (AMB) | payer OTHER, SELFPAY ==
--- NOTE | 2023-11-22 16:00 | MHC.OFFVIS ---
Intake Intake Visit Reasons: 1m/PVR Intake Note: Patient presents for follow up visit for dysuria Urology Medications: none Blood Thinner: none PVR: 21ml's Hander In Required: No Accompanied by: Self / Same As Patient Allergies No Known Allergies Allergy (Verified 11/22/23 20:25) Medication List - Last Reconciled 11/22/23 by ZARINA Barnett cetirizine (Zyrtec) 10 mg PO DAILY PRN omeprazole 20 mg PO DAILY tamsulosin 0.4 mg PO BEDTIME 30 days HPI HPI Comments History of Present Illness Details Joselito is a very pleasant 27-year-old male patient of Dr. Mayberry. He has a past medical history of Gilbert's syndrome and degenerative disc disease. He presents to the office today for follow-up. Of note, patient was seen approximately 1 month ago as a new patient for dysuria at which time he was treated for presumed prostatitis. In discussion with the patient today he reports having completed antibiotic therapy and has noted improvement in dysuria however continues with episodes of urinary frequency. When asked he denies bothersome urinary frequency throughout the day. He reports episodes of urinary frequency tend to happen right before bed. He otherwise denies incontinence, nocturia, hematuria, foul smelling urine, changes to urinary stream, flank pain, fever, and or chills. Discussed at length potential causes of lower urinary tract symptoms patient is experiencing. In office urinalysis results reviewed with the patient today. PVR 21 mL. He otherwise denies any other issues or concerns at this time. [facility] Medical History Degenerative disc disease at L5-S1 level [place] syndrome No known health problems No known health problems Surgical History History of esophagogastroduodenoscopy (EGD) Family History Father Substance use disorder Social History Housing: House Patient Tobacco Use Status: Never used Tobacco e-Cigarette/Vaping Use: Never Used Second Hand Smoke Exposure: No service: No Current occupational status: employed Current occupation: [employer] Current occupational exposures/hazards: Yes Cognitive needs: No Hearing needs: No Vision needs: No Review of Systems Const All systems reviewed & are unremarkable except as noted in HPI and below Physical Exam Const General: cooperative, healthy appearing, comfortable, no acute distress, well developed, alert and awake Orientation/consciousness: patient oriented x3 Limitations: no limitations HEENT Head: Yes normal to inspection, Yes normocephalic and Yes atraumatic Ears: hearing grossly normal bilaterally Eyes General: appearance normal, both eyes and all related structures Neck Neck: Yes normal visual inspection and Yes trachea midline Chest Chest palpation & inspection: normal inspection of the chest Resp Effort & Inspection: normal respiratory effort and able to speak in complete sentences Cardio Rate: regular rate GI Inspection: Yes normal to inspection General: Yes no CVA tenderness Back/Spine/Pelvis Back: no CVA tenderness Skin General skin exam: no rashes or lesions noted Neuro General: patient oriented x3 Extrem General: Yes normal to inspection Psych Appearance: grossly normal and well kempt Mental Status: mental status grossly normal Speech and movement: Normal speech and movement present and Clear speech present Affect: normal affect Attitude: cooperative Thought process: Normal thought process present Thought content: Normal thought content present Insight: Good insight present (Psych) Judgement: Good judgement present (Psych) Office Procedures Post Void Residual Post Residual Void Post Void Residual (PVR): 21 18859-Lqim Void Residual by ultrasound Results AMB Urinalysis, Automated UA Leukoctes 0 Pamela/uL Last Edit by [employer] on 11/22/23 16:13 UA Nitrite Negative Last Edit by [employer] on 11/22/23 16:13 UA Urobilinogen 0.2 mg/dL Last Edit by [employer] on 11/22/23 16:13 UA Protein 0 mg/dL Last Edit by [employer] on 11/22/23 16:13 UA pH 6.0 Last Edit by [employer] on 11/22/23 16:13 UA Blood 0 Willian/uL Last Edit by [employer] on 11/22/23 16:13 UA Specific Mikana 1.015 Last Edit by [employer] on 11/22/23 16:13 UA Ketone Negative Last Edit by [employer] on 11/22/23 16:13 UA Bilirubin 0 mg/dL Last Edit by Galo Jauregui on 11/22/23 16:13 UA Glucose 0 mg/dL Last Edit by Galo Jauregui on 11/22/23 16:13 Results Reviewed Results Reviewed: Laboratory Last Values Urine pH (Auto) 6.0 11/22/23 16:02 Specific Mikana (Auto) 1.015 11/22/23 16:02 Urine Protein (Auto) 0 mg/dL 11/22/23 16:02 Glucose (UA)(Auto) 0 mg/dL 11/22/23 16:02 Urine Ketones (Auto) Negative 11/22/23 16:02 Urine Blood (Auto) 0 Willian/uL 11/22/23 16:02 Urine Nitrite (Auto) Negative 11/22/23 16:02 Urine Bilirubin (Auto) 0 mg/dL 11/22/23 16:02 Urine Urobilinogen (Auto) 0.2 mg/dL 11/22/23 16:02 Leukocyte Esterase (Auto) 0 Pamela/uL 11/22/23 16:02 Assessment & Plan Assessment & Plan (1) Urinary frequency: Code(s): R35.0 - Frequency of micturition (2) Urinary urgency: Code(s): R39.15 - Urgency of urination Plan In office urinalysis results reviewed with the patient today; as noted above. PVR 21 mL. Will obtain retroperitoneal ultrasound for further assessment evaluation. Start Flomax as discussed and prescribed. Urinal provided for bladder diary. Discussed at length potential causes for lower urinary tract symptoms patient is experiencing. Discussed bladder triggers/irritants. Discussed, educated, and stressed the importance of drinking plenty of water daily. Follow-up in 6 weeks with imaging and PVR to be completed prior; or sooner with any issues, concerns, and or questions. Orders: Orders AMB Urinalysis Automated Today Z13.9 - Encounter for screening, unspecified AMB Post Void Residual by ultrasound Today R35.0 - Frequency of micturition US retroperitoneal comp Today R35.0 - Frequency of micturition, R39.15 - Urgency of urination Medications: New tamsulosin 0.4 mg PO BEDTIME 30 caps 1RF 30 days N40.1 - Benign prostatic hyperplasia with lower urinary tract symptoms, R35.1 - Nocturia Patient Instructions: The patient had an opportunity to ask questions regarding the treatment plan. All questions were answered. Physical exam, labs, and imaging were discussed and reviewed in detail. As well as risks, benefits, and discussion of treatment choices. No major barriers to understanding were identified. The patient expressed understanding and agreement with the above treatment plan. The patient was made aware they should contact our office by phone for worsening of their current condition, the appearance of new symptoms, or with any questions or concerns. Compliance is encouraged with any medications and follow up testing that is ordered. It is a privilege to be allowed the opportunity to participate in? your urological care.? Again, if you have any questions or concerns If you have any questions or concerns please do not hesitate to contact me. The office is [phone]. This note is constructed using voice recognition software. While every effort has been made to ensure accuracy finish production manager errors may have been included. Yours sincerely, STEVE Barnett-RAI Coding Level of Care Code Est Pt Level 4 (09485) Diagnoses Urinary frequency R35.0 Urinary urgency R39.15 CPT Codes Post Residual Void - PVR CPT Code: 22600-Vuhl Void Residual by ultrasound ([id number])
== END 2023-11-22 16:32 | disposition home or self-care (01) ==
PROVIDERS: PCP Nurse Practitioner Family; Visit Provider Nurse Practitioner Family
DX: R35.0 Frequency of micturition (principal); R39.15 Urgency of urination; Z13.9 Encounter for screening, unspecified
CPT/HCPCS: 99214

== ENCOUNTER → 2023-11-22 15:36 | Outpatient (BNVA) | payer OTHER, SELFPAY | PROVIDERS: PCP Nurse Practitioner Family; Visit Provider Nurse Practitioner Family | DX: R35.0 Frequency of micturition (principal); R39.15 Urgency of urination | CPT/HCPCS: 51798; 81003 ==

== ENCOUNTER 2023-11-27 16:29 | Outpatient (AMB) | payer OTHER, SELFPAY ==
[2023-11-27 16:30] VITALS: BP 112/70; PULSE 78; O2SAT 98; BMI 36.3
--- NOTE | 2023-11-27 16:30 | MHC.PC.OV ---
Vital Signs 11/27/23 16:30 Height 6 ft 1 in Weight 275 lb BMI 36.3 BP 112/70 Blood Pressure Location Rt brachial Position Sitting Pulse 78 Pulse Source Pulse Oximeter Pulse Oximetry (%) 98 Oxygen Delivery Method Room Air Intake Visit Reasons: PE Intake Note: pt is here for physical exam Diving Instructor Required: No Accompanied by: Self / Same As Patient Allergies No Known Allergies Allergy (Verified 11/27/23 16:31) Medication List - Last Reconciled 11/27/23 by STEVE Urbina-RAI cetirizine (Zyrtec) 10 mg PO DAILY PRN omeprazole 20 mg PO DAILY tamsulosin 0.4 mg PO BEDTIME 30 days Tobacco use date assessed: 11/27/23 Dental Screening Dental Screen Date: 11/27/23 Did you have a dental visit in the last 12 months?: Yes Did you have a dental problem in the last 6 months where you did not have access to dental care?: No Was dental information given to patient?: Patient has dentist HPI PE HPI Details Pt is here for a PE. Will order labs. ongoing lower back pain with radiculopathy down his LLE. He is almost finished with PT, still having quite a bit of pain with radicular symptoms. No signs of cauda equina. Lumbar XR: L5-S1, there is moderately severe degenerative disc disease and facet arthropathy. At this point i will order a MRI. 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 1. Little interest or pleasure in doing things: not at all 2. Feeling down, depressed, or hopeless: not at all 3. Trouble falling or staying asleep, or sleeping too much: not at all 4. Feeling tired or having little energy: not at all 5. Poor appetite or overeating: not at all 6. Feeling bad about yourself - or that you are a failure or have let yourself or your family down: not at all 7. Trouble concentrating on things, such as reading the newspaper or watching television: not at all 8. Moving or speaking so slowly that other people could have noticed. Or the opposite - being so fidgety or restless that you have been moving around a lot more than usual: not at all 9. Thoughts that you would be better off or of hurting yourself in some way: not at all Total score: 0 Depression Screening Interpretation: Negative Depression Screening Done: Yes 44272 - PHQ-9 Billing: Yes Source: Developed by Drs. Salvador Sofia, Concetta Young, Paul Powell and colleagues, with an educational willi from [employer]. Thrive Questionnaire Date Thrive assessed: 11/27/23 I am a: Patient What is your living situation today?: I have a steady place to live Within the past 12 months, did the food you bought not last and you didn't have the money to get more?: Never true Within the past 12 months, did you worry whether your food would run out before you got money to buy more?: Never true Do you have trouble paying for medicines?: No Do you have trouble getting transportation to medical appointments?: No Do you have trouble paying your heating and electricity bill?: No Do you have trouble taking care of your child, family member or friend?: No Do you have trouble with day-to-day activities such as bathing, preparing meals, shopping, managing finances, etc.?: No Are you currently unemployed and looking for a job?: No Are you interested in more education?: No Please select the resources that you would like help with: None Currently or been in a relationship where the following occur: no concerns reported THRIVE Score: 0 AUDIT C Alcohol Use Questionnaire (AUDIT-C) 1. How often do you have a drink containing alcohol?: Never 3. How often do you have six or more drinks on one occasion?: Never Total Score: 0 Score Reviewed/Action Taken: Yes CIERRA-7 AMB Questionnaire CIERRA-7 Date CIERRA - 7 assessed: 11/27/23 Feeling nervous, anxious, or on edge: 0 = Not at all Not being able to stop or control worryin = Not at all Worrying too much about different things: 0 = Not at all Trouble relaxin = Several days Being so restless that it is hard to sit still: 0 = Not at all Becoming easily annoyed or irritable: 0 = Not at all Feeling afraid as if something awful might happen: 0 = Not at all Total CIERRA-7 score (0-4 normal; 5-9 mild; 10-14 moderate; 15-21 severe): 1 Source: Developed by Drs. Salvador Sofia, Concetta Young, Paul Powell and colleagues, with an educational willi from [employer]. CIERRA-7 Assessment Billing CIERRA-7 Assessment Tool: CIERRA-7 Assessment 02717 Review of Systems Const Denies chills and Denies fever(s) Eyes Denies blurry vision ENT Denies vertigo, Denies dizziness and Denies sore throat Card Denies chest pain at rest, Denies chest pain with activity, Denies diaphoresis, Denies dyspnea and Denies dyspnea on exertion Resp Denies cough, Denies dyspnea, Denies dyspnea on exertion and Denies wheezing GI Denies abdominal pain, Denies melena, Denies hematochezia, Denies constipation, Denies diarrhea and Denies loose stools Denies hematuria Musc Reports numbness (down LLE) and Reports tingling (down LLE) Skin/Breast Denies lesions Neuro Denies vertigo, Denies dizziness, Reports numbness (down LLE) and Reports tingling (down LLE) Psych Denies anxiety, Denies depression, Denies homicidal ideation, Denies suicidal ideation and Denies other (substance abuse) Aller/Immun Denies wheezing Physical exam (Primary Care) Vital Signs: Last Vital Signs Pulse 78 11/27/23 16:30 BP 112/70 11/27/23 16:30 Pulse Ox 98 11/27/23 16:30 Oxygen Delivery Method Room Air 11/27/23 16:30 BMI result Body Mass Index 36.3 Tobacco/Smoking Status: Tobacco use Status Tobacco use date assessed 11/27/23 11/27/23 16:31 Patient Tobacco Use Status Never used Tobacco 11/27/23 16:30 e-Cigarette/Vaping Use Never Used 11/27/23 16:30 PHQ-9: PHQ-9 Score PHQ-9: Total score 0 11/27/23 16:38 Depression Screening Interpretation: Negative Thrive Assessment: Date of Thrive Assessment Date Thrive assessed 11/27/23 11/27/23 16:38 Currently or been in a relationship where the following occur: no concerns reported Const General: cooperative Nutritional Appearance: well nourished Orientation/consciousness: patient oriented x3 HENMT Head: Yes normal to inspection, Yes normocephalic and Yes atraumatic Ears: TM's normal bilaterally Eyes General: appearance normal, both eyes and all related structures Alignment and Position: alignment normal and position normal Neck Neck: Yes normal visual inspection and Yes no lymphadenopathy Thyroid: Thyroid normal Resp Effort & Inspection: normal respiratory effort Auscultation: clear to auscultation bilaterally Cardio Rate: regular rate Rhythm: regular rhythm Heart sounds: S1 normal heart sound present, S2 normal heart sound present and no murmurs GI Palpation (GI): Soft to palpation and nontender Auscultation: normal bowel sounds Male General Exam: Yes normal external exam Penis: normal penis Scrotum: scrotum normal, testes descended bilaterally and no inguinal hernias Testes: no testicular mass Skin Rashes: no rashes Neuro General: patient oriented x3, moves all extremities, no focal motor deficits and deep tendon reflexes 2+ bilaterally Romberg Test: Negative Psych Appearance: grossly normal Mental Status: mental status grossly normal Speech and movement: Normal speech and movement present Affect: normal affect Attitude: cooperative Thought process: Normal thought process present Thought content: Normal thought content present Insight: Good insight present (Psych) Judgement: Good judgement present (Psych) Assessment and Plan Assessment & Plan (1) Physical exam: Code(s): Z00.00 - Encounter for general adult medical examination without abnormal findings (2) Degenerative disc disease at L5-S1 level: Code(s): M51.37 - Other intervertebral disc degeneration, lumbosacral region (3) Lumbar back pain with radiculopathy affecting left lower extremity: Code(s): M54.16 - Radiculopathy, lumbar region Orders: Orders TSH reflex Free T4 Today Z00.00 - Encounter for general adult medical examination without abnormal findings UA CC w/rflx Micro + Cult Today Z00.00 - Encounter for general adult medical examination without abnormal findings Lipid Panel Today Z00.00 - Encounter for general adult medical examination without abnormal findings Complete Blood Count Auto Diff Today Z00.00 - Encounter for general adult medical examination without abnormal findings Comprehensive [place]. Panel Fast Today Z00.00 - Encounter for general adult medical examination without abnormal findings MR lumbar spine wo con Today M51.37 - Other intervertebral disc degeneration, lumbosacral region, M54.16 - Radiculopathy, lumbar region Coding Level of Care Code Est Pt Prev Care 18-39y([id number]) Diagnoses Physical exam Z00.00 Degenerative disc disease at L5-S1 level M51.37 Lumbar back pain with radiculopathy affecting left lower extremity M54.16 Additional Codes CIERRA-7 Assessment Billing - CIERRA-7 Assessment Tool: CIERRA-7 Assessment [id number] ([id number])
== END 2023-11-27 17:05 | disposition home or self-care (01) ==
PROVIDERS: Visit Provider Nurse Practitioner Family
DX: Z00.00 Encounter for general adult medical examination without abnormal findings (principal); M51.37 Other intervertebral disc degeneration, lumbosacral region; M54.16 Radiculopathy, lumbar region
CPT/HCPCS: 99395

== ENCOUNTER 2023-12-18 16:00 | Outpatient (RCR) | payer OTHER, SELFPAY ==
--- NOTE | 2023-10-25 11:39 | MHC.PT.EP ---
[facility] [place] Office [place] [facility] [place] Office [address] [phone] F: [phone] F: [phone] F: [phone] F: [phone] Physical Therapy Plan of Care Date of Evaluation: 10/24/23 Date of Surgery: Diagnosis: low back pain, disc degeneration lumbosacral region (MD Dx) At L5-S1, there is moderate to marked disc space narrowing, a 4 mm retrolisthesis, anterior spondylosis and facet arthropathy (imaging) Assessment: Patient is a pleasant 27 y.o. 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 Patient impairments include poor posture, limited ROM, weakness in hips and core. Patient current functional limitations are prolonged sitting, prolonged standing, prolonged walking (taking dog for walk), putting on shoes/socks. Patient will benefit from skilled PT to address aforementioned impairments and functional limitations to meet established goals. Frequency and Duration: The patient will be seen 2x/week for 4 weeks Short Term Goals: 2 weeks Patient demonstrates consistency and independence with HEP to self manage symptoms. Strip Polisher Goals: 4 weeks Patient presents with increased L hip glute med strength 5/5 to be able to stand for 30 mins at work. Patient presents with increased bilateral hip flexion 5/5 to be able to walk dogs outside for 30 mins without sxs. Treatment Plan: Modalities to reduce pain, spasms and effusion. Manual therapy to restore motion and function. Therapeutic exercise to improve strength and flexibility. Neuromuscular re-education for posture and balance. Therapeutic activities to return to functional activities of daily living. Electronically signed by: Tom Rees, PT, DPT Please sign and return to therapist. Thank you for your referral.
--- NOTE | 2024-04-01 15:59 | MHC.PT.DC ---
[facility] Office [place] Office [place] Office [address] Memo Mercer [address] [phone] F: [phone] F: [phone] F: [phone] F: [phone] Physical Therapy Discharge Report Diagnosis: low back pain, disc degeneration lumbosacral region ( Dx) At L5-S1, there is moderate to marked disc space narrowing, a 4 mm retrolisthesis, anterior spondylosis and facet arthropathy (imaging) Date of Surgery: Date of Evaluation: 10/24/23 Date of Discharge: 04/01/24 Treatments to Date: 12 Cancellations to Date: No Shows to Date: Discharge Status: Achieved Goals Improved Function Independent with HEP Discharge Summary: Joselito completed course of PT. His last PT session was 12/18/23, the assessment reads, Joselito independent w/HEP. independent w/HEP. He is therefore discharged from PT. Electronically signed by: Tom Rees, PT, DPT Please sign and return to therapist. Thank you for your referral.
== END 2024-04-01 15:59 | disposition home or self-care (01) ==
LOC: HO.PT 16:00
PROVIDERS: PCP Nurse Practitioner Family; Visit Provider Nurse Practitioner Family
DX: M54.50 Low back pain, unspecified (principal); M51.37 Other intervertebral disc degeneration, lumbosacral region
CPT/HCPCS: 97012; 97035; 97110; 97140; 97161; 97530

== ENCOUNTER 2023-12-21 14:23 | Outpatient (REF) | payer OTHER, SELFPAY ==
--- NOTE | ~2023-12-21 | US_ITS ---
EXAMINATION: US RETROPERITONEAL COMPLETE (RENAL) CLINICAL INFORMATION: Frequency of micturition. COMPARISON: Ultrasound abdomen complete 02/01/2023. CT abdomen and pelvis 11/05/2021. TECHNIQUE: Real-time imaging of the kidneys and bladder. Limited visualization due to bowel gas and body habitus. FINDINGS: RIGHT KIDNEY: 11.9 x 4.9 x 6.2 cm (SAG x AP x TRV). No hydronephrosis. No renal calculi. Renal cortical thickness is normal. Limited visualization. LEFT KIDNEY: 11.5 x 6.5 x 5.9 cm (SAG x AP x TRV). Mild fullness left renal pelvis versus extrarenal pelvis. No renal calculi. Renal cortical thickness is normal. Limited visualization. BLADDER: Well-distended. Bilateral ureteral jets are demonstrated. Prevoid bladder volume is 543 mL. Postvoid bladder volume is 40.4 mL. ADDITIONAL FINDINGS: Prostate volume 27.9 mL. US/US retroperitoneal comp IMPRESSION: 1. Mild fullness left renal pelvis versus extrarenal pelvis. No renal calculi. 2. Postvoid bladder volume 40.4 mL. 3. Limited visualization due to bowel gas and body habitus.
== END 2023-12-21 14:24 | disposition home or self-care (01) ==
LOC: HO.US 14:23
PROVIDERS: PCP Nurse Practitioner Family; Visit Provider Nurse Practitioner Family
DX: R35.0 Frequency of micturition (principal); R39.15 Urgency of urination
CPT/HCPCS: 76770

== ENCOUNTER 2023-12-26 07:18 | Outpatient (REF) | payer OTHER, SELFPAY ==
--- NOTE | ~2023-12-26 | MR_ITS ---
EXAMINATION: MR LUMBAR SPINE WITHOUT CONTRAST CLINICAL INFORMATION: Discomfort and pain in low back. Left leg radicular symptoms reported. COMPARISON: X-ray lumbar spine dated 08/01/2023. TECHNIQUE: Multiplanar, multisequence imaging was obtained. FINDINGS: VERTEBRAL BODIES AND PARASPINAL STRUCTURES: The thoracolumbar junction is transitional with small riblets at what is considered the L1 level. There are mixed chronic and mild edematous endplate changes at the L5-S1 level where there is a mild posterior subluxation and severe loss of disc height. Small multilevel endplate Schmorl's nodes visible in the lower thoracic and lumbar spine. The remainder of the marrow signal is fairly homogeneous. There are no compression fractures or anterior subluxations. Very mild rightward lumbar spinal curvature noted. The paraspinal soft tissues are unremarkable. CONUS MEDULLARIS AND CAUDA EQUINE: The distal cord, conus tip, and cauda equina nerve roots are normal. The conus terminate at the T12 level. SPINAL LEVELS: L1-L2: No disc pathology, central canal stenosis, or foraminal narrowing. Small endplate Schmorl's nodes. L2-L3: No disc abnormality or central canal stenosis. Patent foramina with small endplate Schmorl's nodes. Minimal posterior subluxation. L3-L4: Minimal disc bulge and mild facet arthropathy without central canal stenosis or significant foraminal encroachment. L4-L5: Mild generalized disc bulge and mild facet arthropathy with thickening of the ligamentum flavum resulting in mild central canal stenosis, particularly at the level of the subarticular zones. Mild to moderate bilateral foraminal narrowing. L5-S1: Severe loss of disc height and disc desiccation with chronic fatty marrow and mild edematous endplate changes. Posterior subluxation and broad-based posterior disc bulge with a small central disc protrusion slightly impressing upon the ventral thecal sac and the left S1 nerve root in the subarticular zone. Xgis-ax-ocyirhtg facet arthropathy. No central canal stenosis. Moderate bilateral foraminal narrowing. Bulging disc and lateral ossific spurring impress upon the extraforaminal right L5 nerve root. MR/MR lumbar spine wo con IMPRESSION: 1. Severe chronic degenerative disc disease at the L5-S1 level with mild edematous endplate changes. Broad-based posterior disc bulge and small central disc protrusion mildly impressing upon the left S1 nerve root. Moderate bilateral foraminal narrowing. Bulging disc and lateral ossific spurring impress upon the extraforaminal right L5 nerve root. 2. Mild disc bulge and facet arthropathy at the L4-L5 level with mild central canal stenosis and mild to moderate foraminal narrowing.
== END 2023-12-26 07:19 | disposition home or self-care (01) ==
LOC: HO.MRI 07:18
PROVIDERS: PCP Nurse Practitioner Family; Visit Provider Nurse Practitioner Family
DX: M51.37 Other intervertebral disc degeneration, lumbosacral region (principal); M54.16 Radiculopathy, lumbar region
CPT/HCPCS: 51798; 72148; 81003

== ENCOUNTER 2023-12-26 14:35 | Outpatient (AMB) | payer OTHER, SELFPAY ==
--- NOTE | 2023-12-26 14:39 | MHC.OFFVIS ---
Intake Intake Visit Reasons: 5w/US/PVR(pending 12/21) Intake Note: Patient presents for follow up visit for frequency,urgency, and ultrasound results Imagin12/21/23 Urology Medications: Tamsulosin Blood Thinner: none PVR: 39ml Patient state he urinates about 12 times a day, he feels burning at times afterwards. 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 Mayberry. He has a past medical history of Gilbert's syndrome and degenerative disc disease. He presents to the office today for follow-up. Of note, patient was seen approximately 6 weeks ago at which time he was started on Flomax for ongoing lower urinary tract symptoms he has been experiencing. Previously patient was treated for presumed prostatitis given lower urinary tract symptoms of urinary urgency, urinary frequency, and reports of dysuria as well as burning to the tip of his penis at the end of urination. He reports noting somewhat improvement in urinary urgency and frequency on Flomax however still continues with urinary frequency and nocturia. He reports having tract his urinary output and gives an example of just approximately 2 days ago having urinated prior to bed in approximately 45 minutes later having urgency and urine output was less than 100 cc. He reports episodes of urinary frequency and urgency tend to happen right before bed. He otherwise denies incontinence, nocturia, hematuria, foul smelling urine, changes to urinary stream, flank pain, fever, and or chills. Discussed at length potential causes of lower urinary tract symptoms patient is experiencing. In office urinalysis results reviewed with the patient today. PVR 39 mL. Recent retroperitoneal ultrasound results reviewed with the patient today. Bilateral kidneys with no calculi. Mild fullness left renal pelvis versus extrarenal pelvis. The bladder is well distended. Bilateral ureteral jets are demonstrated. Pre void bladder volume is approximately 545 mL. Postvoid bladder volume is approximately 40 mL. Prostate volume is approximately 28 mL. He otherwise offers no other issues or concerns at this time. 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 Current occupational exposures/hazards: Yes Cognitive needs: No Hearing needs: No Vision needs: No Review of Systems Const All systems reviewed & are unremarkable except as noted in HPI and below Physical Exam Const General: cooperative, healthy appearing, comfortable, no acute distress, well developed, alert and awake Orientation/consciousness: patient oriented x3 Limitations: no limitations HEENT Head: Yes normal to inspection, Yes normocephalic and Yes atraumatic Ears: hearing grossly normal bilaterally Eyes General: appearance normal, both eyes and all related structures Neck Neck: Yes normal visual inspection and Yes trachea midline Chest Chest palpation & inspection: normal inspection of the chest Resp Effort & Inspection: normal respiratory effort and able to speak in complete sentences Cardio Rate: regular rate GI Inspection: Yes normal to inspection General: Yes no CVA tenderness Back/Spine/Pelvis Back: no CVA tenderness Skin General skin exam: no rashes or lesions noted Neuro General: patient oriented x3 Extrem General: Yes normal to inspection Psych Appearance: grossly normal and well kempt Mental Status: mental status grossly normal Speech and movement: Normal speech and movement present and Clear speech present Affect: normal affect Attitude: cooperative Thought process: Normal thought process present Thought content: Normal thought content present Insight: Good insight present (Psych) Judgement: Good judgement present (Psych) Office Procedures Post Void Residual Post Residual Void Post Void Residual (PVR): 39 [id number] Void Residual by ultrasound Results AMB Urinalysis, Automated UA Leukoctes 0 Pamela/uL Last Edit by [facility], [facility] on 12/26/23 14:54 UA Nitrite Negative Last Edit by [facility], [facility] on 12/26/23 14:54 UA Urobilinogen 0.2 mg/dL Last Edit by [facility], [facility] on 12/26/23 14:54 UA Protein 15 mg/dL Last Edit by [facility], [facility] on 12/26/23 14:54 UA pH 6.0 Last Edit by [facility], [facility] on 12/26/23 14:54 UA Blood 0 Willian/uL Last Edit by [facility], [facility] on 12/26/23 14:54 UA Specific Glynn 1.025 Last Edit by [facility], [facility] on 12/26/23 14:54 UA Ketone Negative Last Edit by [facility], [facility] on 12/26/23 14:54 UA Bilirubin 0 mg/dL Last Edit by [facility], [facility] on 12/26/23 14:54 UA Glucose 0 mg/dL Last Edit by [facility], [facility] on 12/26/23 14:54 Results Reviewed Results Reviewed: Laboratory Last Values Urine pH (Auto) 6.0 12/26/23 14:42 Specific Glynn (Auto) 1.025 12/26/23 14:42 Urine Protein (Auto) 15 mg/dL 12/26/23 14:42 Glucose (UA)(Auto) 0 mg/dL 12/26/23 14:42 Urine Ketones (Auto) Negative 12/26/23 14:42 Urine Blood (Auto) 0 Willian/uL 12/26/23 14:42 Urine Nitrite (Auto) Negative 12/26/23 14:42 Urine Bilirubin (Auto) 0 mg/dL 12/26/23 14:42 Urine Urobilinogen (Auto) 0.2 mg/dL 12/26/23 14:42 Leukocyte Esterase (Auto) 0 Pamela/uL 12/26/23 14:42 Date of Service: 12/21/23 EXAMINATION: US RETROPERITONEAL COMPLETE (RENAL) FINDINGS: RIGHT KIDNEY: 11.9 x 4.9 x 6.2 cm (SAG x AP x TRV). No hydronephrosis. No renal calculi. Renal cortical thickness is normal. Limited visualization. LEFT KIDNEY: 11.5 x 6.5 x 5.9 cm (SAG x AP x TRV). Mild fullness left renal pelvis versus extrarenal pelvis. No renal calculi. Renal cortical thickness is normal. Limited visualization. BLADDER: Well-distended. Bilateral ureteral jets are demonstrated. Prevoid bladder volume is 543 mL. Postvoid bladder volume is 40.4 mL. ADDITIONAL FINDINGS: Prostate volume 27.9 mL. IMPRESSION: 1. Mild fullness left renal pelvis versus extrarenal pelvis. No renal calculi. 2. Postvoid bladder volume 40.4 mL. 3. Limited visualization due to bowel gas and body habitus. Assessment & Plan Assessment & Plan (1) Urinary frequency: Code(s): R35.0 - Frequency of micturition (2) Urinary urgency: Code(s): R39.15 - Urgency of urination Plan In office urinalysis results reviewed with the patient today; as noted above. PVR 39 mL. Recent retroperitoneal ultrasound results reviewed with the patient today. Stop Flomax Start VESIcare 5 mg daily as discussed and prescribed. Discussed at length potential causes for lower urinary tract symptoms patient is experiencing. Discussed bladder triggers/irritants. Discussed, educated, and stressed the importance of drinking plenty of water daily. Follow-up in 6 weeks with imaging and PVR to be completed prior; or sooner with any issues, concerns, and or questions. Orders: Orders AMB Urinalysis Automated Today R33.9 - Retention of urine, unspecified AMB Post Void Residual by ultrasound Today R33.9 - Retention of urine, unspecified Medications: New solifenacin (Vesicare) 5 mg PO DAILY 30 days 30 tabs 2RF Discontinued tamsulosin Discontinued Reason: Doctor's Order 0.4 mg PO BEDTIME 30 days 30 caps 1RF N40.1 - Benign prostatic hyperplasia with lower urinary tract symptoms, R35.1 - Nocturia Patient Instructions: The patient had an opportunity to ask questions regarding the treatment plan. All questions were answered. Physical exam, labs, and imaging were discussed and reviewed in detail. As well as risks, benefits, and discussion of treatment choices. No major barriers to understanding were identified. The patient expressed understanding and agreement with the above treatment plan. The patient was made aware they should contact our office by phone for worsening of their current condition, the appearance of new symptoms, or with any questions or concerns. Compliance is encouraged with any medications and follow up testing that is ordered. It is a privilege to be allowed the opportunity to participate in? your urological care.? Again, if you have any questions or concerns If you have any questions or concerns please do not hesitate to contact me. The office is [phone]. This note is constructed using voice recognition software. While every effort has been made to ensure accuracy inspecting engineer errors may have been included. Yours sincerely, ZARINA Barnett Coding Level of Care Code Est Pt Level 4 (06236) Diagnoses Urinary frequency R35.0 Urinary urgency R39.15 CPT Codes Post Residual Void - PVR CPT Code: 10979-Spta Void Residual by ultrasound ([id number])
== END 2023-12-26 15:32 | disposition home or self-care (01) ==
PROVIDERS: PCP Nurse Practitioner Family; Visit Provider Nurse Practitioner Family
DX: R35.0 Frequency of micturition (principal); R39.15 Urgency of urination; R33.9 Retention of urine, unspecified
CPT/HCPCS: 99214

== ENCOUNTER 2024-01-11 13:48 | Outpatient (REF) | payer OTHER, SELFPAY ==
--- NOTE | ~2024-01-11 | XR_ITS ---
EXAMINATION: XR LUMBOSACRAL SPINE WITH OBLIQUES CLINICAL INFORMATION: Lumbar radiculopathy. COMPARISON: Lumbar spine radiographs dated 08/01/2023. TECHNIQUE: AP and lateral (neutral, flexion and extension) views of the lumbosacral spine are submitted. FINDINGS: Vertebral body are normal. There is a mild thoracolumbar dextroscoliosis. At L5-S1, there is moderately severe disc space narrowing, with endplate arthropathy. The remaining disc spaces are relatively well-maintained. No acute fracture or spondylolisthesis is seen. The posterior elements are intact. The paravertebral soft tissues are unremarkable. XR/XR lumbar spine 4V min IMPRESSION: 1. There is moderately severe degenerative disc disease at L5-S1. 2. There is a mild thoracolumbar dextroscoliosis.
== END 2024-01-11 13:49 | disposition home or self-care (01) ==
LOC: HO.HOSX 13:48
PROVIDERS: PCP Nurse Practitioner Family; Visit Provider Physician Assistant
DX: M54.16 Radiculopathy, lumbar region (principal)
CPT/HCPCS: 72110

== ENCOUNTER 2024-01-11 13:48 | Outpatient (AMB) | payer OTHER, SELFPAY ==
--- NOTE | 2024-01-11 14:10 | HO.SPINEOV ---
Intake Intake Visit Reasons: Radiculopathy, lumbar region Intake Note: Mr. Dueñas is here today c/o lower back and left leg pain. 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 He is a very nice 28-year-old male presents to the office for evaluation of chronic back pain with superimposed left leg pain. The leg pain is the real reason he is here today, it has been getting steadily worse over the course of about a year and a half. It is down in his posterior hamstring into his lateral calf. It is aggravated with any kind of prolonged standing or walking. If he lays down he is more less pain-free. If he has at an event or at some kind of activity where he has to stand for any length of time, he usually will have to leave early because of back pain and the leg pain obese so bad that he has to go home get off his feet and take Motrin etc.. He works as a rig supervisor doing outdoor electrical work and is spending often parts of his day in awkward positions. If he gets up and moves around little bit it seems to make the discomfort go away. However, if he goes back to standing for any length of time it is bothering him. It is making him not want to do many of the recreational activities of the finds valuable in life. He tried physical therapy and chiropractic and neither made any significant difference. Here today with an MRI showing a significant collapse of the disc at L5-S1 with bilateral neural foraminal stenosis. PMH: He is otherwise healthy Social hx: He does not smoke, drink or use any recreational drugs Medications: He will take [id number]-[id number] pain medications if needed, omeprazole Allergies: None Physical exam: Strength, gait and reflexes are intact Imaging review: Lumbar MRI done [facility] shows a severely collapsed disc at L5-S1 with moderate bilateral neural foraminal stenosis, there are Modic endplate changes seen at this level. I do not see any other abnormalities in the lumbar spine. Impression: 28-year-old presents with chronic low back pain but more recently over the last year and a half he has superimposed severe pain in his posterior lateral thigh going into his lateral calf. It is aggravated with prolonged standing or prolonged walking. He works as a rig supervisor doing outside electrical work and often spends part of his day in awkward positions. This will aggravate it as well. The leg pain is worse than the back pain. He has had 2 avoid many of the recreational activities that he finds enjoyable because of the pain and discomfort. Conservative management trialed as outlined above. At this point he is getting fed up with the pain and discomfort primarily in the leg. I think what he is dealing with his the collapse of the disc causing the foramen to be narrowed and even though the compression in the foramen is not severe, when he stands up I suspect it compresses even further. The MRI is done in a recumbent position, so I will get a set of standing x-rays just to evaluate this better. Typically for chronic back pain with leg pain in the setting of an isolated collapsed discs like this Dr. Mccurdy would fuse, but because of his age I think an artificial disc would be a better option. The patient is looking to avoid such an invasive procedure, and see if there is something he can do to treat the pain that is less invasive. I will review the imaging with Dr. Mccurdy to see if he thinks a foraminotomy would be indicated. Obviously we are not treating the underlying pathology however and the patient would need to understand that in all likelihood it would end up needing the fusion or artificial disc replacement down the road. Once I have a chance to finalize the plan with Dr. Mccurdy I will get back to the patient. Thank you for allowing us to care for your patient. The total time spent with this visit with this patient was 45 minutes reviewing history, physical exam, lumbar imaging review, and implementation of treatment plan or further diagnostic testing Marco Mccurdy MD,PhD [facility] Orders: Orders XR lumbar spine 4V min Today M54.16 - Radiculopathy, lumbar region Coding Level of Care Code New Pt Level 4 (89788) Diagnoses Lumbar back pain with radiculopathy affecting left lower extremity M54.16
== END 2024-01-11 14:46 | disposition home or self-care (01) ==
PROVIDERS: PCP Nurse Practitioner Family; Referring Provider Nurse Practitioner Family; Visit Provider Physician Assistant
DX: M54.16 Radiculopathy, lumbar region (principal)
CPT/HCPCS: 99204

== ENCOUNTER 2024-02-07 15:33 | Outpatient (AMB) | payer OTHER, SELFPAY ==
--- NOTE | 2024-02-07 15:36 | MHC.OFFVIS ---
Intake Intake Visit Reasons: 6w/PVR Intake Note: Patient presents today for a follow up on: Urinary Frequency and PVR Meds- Solifenacin Allergies to Antibiotic- No Known Allergies Blood Thinner- None Post Void Residual: 61ml Professor Of Mathematics Required: No Accompanied by: Self / Same As Patient Allergies No Known Allergies Allergy (Verified 02/07/24 16:07) Medication List - Last Reconciled 02/07/24 by STEVE Barnett- cetirizine (Zyrtec) 10 mg PO DAILY PRN omeprazole 20 mg PO DAILY solifenacin (Vesicare) 10 mg (2 x 5 mg) PO DAILY 30 days HPI HPI Comments History of Present Illness Details Joselito is a very pleasant 28-year-old male patient of Dr. Mayberry. He has a past medical history of Gilbert's syndrome and degenerative disc disease. He presents to the office today for follow-up. Of note, patient was seen approximately 6 weeks ago at which time he was started on VESIcare 5 mg daily for ongoing lower urinary tract symptoms he has been experiencing. In discussion with the patient today he reports minimal improvement in urinary urgency, urinary frequency, and episodes of nocturia he has been experiencing. He has previously trialed Flomax with no improvement in lower urinary tract symptoms. Previously patient was treated for presumed prostatitis given lower urinary tract symptoms of urinary urgency, urinary frequency, and reports of dysuria as well as burning to the tip of his penis at the end of urination. Discussed symptoms of prostatitis can take weeks/months for resolution. However, patient continues to be extremely bothered by his sense of urgency and urinary frequency. He otherwise denies incontinence, hematuria, foul smelling urine, changes to urinary stream, flank pain, fever, and or chills. Discussed at length potential causes of lower urinary tract symptoms patient is experiencing. In office urinalysis results reviewed with the patient today. PVR 61ml's. Previous workup has included a retroperitoneal ultrasound noting bilateral kidneys with no calculi. Mild fullness left renal pelvis versus extrarenal pelvis. The bladder is well distended. Bilateral ureteral jets are demonstrated. Pre void bladder volume is approximately 545 mL. Postvoid bladder volume is approximately 40 mL. Prostate volume is approximately 28 mL. He otherwise offers no other issues or concerns at this time. 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 Current occupational exposures/hazards: Yes Cognitive needs: No Hearing needs: No Vision needs: No Review of Systems Const All systems reviewed & are unremarkable except as noted in HPI and below Physical Exam Const General: cooperative, healthy appearing, comfortable, no acute distress, well developed, alert and awake Orientation/consciousness: patient oriented x3 Limitations: no limitations HEENT Head: Yes normal to inspection, Yes normocephalic and Yes atraumatic Ears: hearing grossly normal bilaterally Eyes General: appearance normal, both eyes and all related structures Neck Neck: Yes normal visual inspection and Yes trachea midline Chest Chest palpation & inspection: normal inspection of the chest Resp Effort & Inspection: normal respiratory effort and able to speak in complete sentences Cardio Rate: regular rate GI Inspection: Yes normal to inspection General: Yes no CVA tenderness Back/Spine/Pelvis Back: no CVA tenderness Skin General skin exam: no rashes or lesions noted Neuro General: patient oriented x3 Extrem General: Yes normal to inspection Psych Appearance: grossly normal and well kempt Mental Status: mental status grossly normal Speech and movement: Normal speech and movement present and Clear speech present Affect: normal affect Attitude: cooperative Thought process: Normal thought process present Thought content: Normal thought content present Insight: Good insight present (Psych) Judgement: Good judgement present (Psych) Office Procedures Post Void Residual Post Residual Void Post Void Residual (PVR): 61 [id number] Void Residual by ultrasound Results AMB Urinalysis, Automated UA Leukoctes 0 Pamela/uL Last Edit by Beverly Roger CMA on 02/07/24 15:56 UA Nitrite Negative Last Edit by Beverly Barbera Roger, [facility] on 02/07/24 15:56 UA Urobilinogen 0.2 mg/dL [facility], [facility] on 02/07/24 15:56 UA Protein 0 mg/dL Last Edit [facility], [facility] on 02/07/24 15:56 UA pH 6.5 Last Edit by [facility], [facility] on 02/07/24 15:56 UA Blood 0 Willian/uL Last Edit by [facility], [facility] on 02/07/24 15:56 UA Specific [place] 1.015 Last Edit by [facility], [facility] on 02/07/24 15:56 UA Ketone Negative Last Edit by [facility], [facility] on 02/07/24 15:56 UA Bilirubin 0 mg/dL Last Edit by [facility], [facility] on 02/07/24 15:56 UA Glucose 0 mg/dL Last Edit by [facility], [facility] on 02/07/24 15:56 Results Reviewed Results Reviewed: Laboratory Last Values Urine pH (Auto) 6.5 02/07/24 15:54 Specific [place] (Auto) 1.015 02/07/24 15:54 Urine Protein (Auto) 0 mg/dL 02/07/24 15:54 Glucose (UA)(Auto) 0 mg/dL 02/07/24 15:54 Urine Ketones (Auto) Negative 02/07/24 15:54 Urine Blood (Auto) 0 Willian/uL 02/07/24 15:54 Urine Nitrite (Auto) Negative 02/07/24 15:54 Urine Bilirubin (Auto) 0 mg/dL 02/07/24 15:54 Urine Urobilinogen (Auto) 0.2 mg/dL 02/07/24 15:54 Leukocyte Esterase (Auto) 0 Pamela/uL 02/07/24 15:54 Assessment & Plan Assessment & Plan (1) Urinary urgency: Code(s): R39.15 - Urgency of urination (2) Urinary frequency: Code(s): R35.0 - Frequency of micturition (3) Nocturia: Code(s): R35.1 - Nocturia Plan In office urinalysis results reviewed with the patient today. PVR 61 mL. Will increase VESIcare to 10 mg daily. Discussed at length potential causes for lower urinary tract symptoms patient is experiencing. Discussed bladder triggers/irritants. Discussed potential symptoms related to previous treatment of prostatitis; discussed it can take weeks/months for complete resolution. Follow up in office cystoscopy; or sooner with any issues, concerns, or questions. Orders: Orders AMB Urinalysis Automated Today R33.9 - Retention of urine, unspecified AMB Post Void Residual by ultrasound Today R33.9 - Retention of urine, unspecified Medications: Changed From solifenacin (Vesicare) 5 mg PO DAILY 30 days 30 tabs 2RF To solifenacin (Vesicare) This is an increase in dose 10 mg (2 x 5 mg) PO DAILY 60 tabs 2RF 30 days Patient Instructions: The patient had an opportunity to ask questions regarding the treatment plan. All questions were answered. Physical exam, labs, and imaging were discussed and reviewed in detail. As well as risks, benefits, and discussion of treatment choices. No major barriers to understanding were identified. The patient expressed understanding and agreement with the above treatment plan. The patient was made aware they should contact our office by phone for worsening of their current condition, the appearance of new symptoms, or with any questions or concerns. Compliance is encouraged with any medications and follow up testing that is ordered. It is a privilege to be allowed the opportunity to participate in? your urological care.? Again, if you have any questions or concerns If you have any questions or concerns please do not hesitate to contact me. The office is [phone]. This note is constructed using voice recognition software. While every effort has been made to ensure accuracy environmental project manager errors may have been included. Yours sincerely, ZARINA Barnett Coding Level of Care Code Est Pt Level 3 (82094) Diagnoses Urinary urgency R39.15 Urinary frequency R35.0 Nocturia R35.1 CPT Codes Post Residual Void - PVR CPT Code: 96706-Ecsb Void Residual by ultrasound ([id number])
== END 2024-02-07 16:07 | disposition home or self-care (01) ==
PROVIDERS: PCP Nurse Practitioner Family; Visit Provider Nurse Practitioner Family
DX: R39.15 Urgency of urination (principal); R35.0 Frequency of micturition; R35.1 Nocturia; R33.9 Retention of urine, unspecified
CPT/HCPCS: 99213

== ENCOUNTER → 2024-02-07 15:33 | Outpatient (BNVA) | payer OTHER, SELFPAY | PROVIDERS: PCP Nurse Practitioner Family; Visit Provider Nurse Practitioner Family | DX: R39.15 Urgency of urination (principal); R35.0 Frequency of micturition; R35.1 Nocturia; R33.9 Retention of urine, unspecified | CPT/HCPCS: 51798; 81003 ==

== ENCOUNTER 2024-03-25 14:51 | Outpatient (AMB) | payer OTHER, SELFPAY ==
--- NOTE | 2024-03-25 15:01 | A.OFFVIS_ITS ---
Intake Visit Reasons: cysto Intake Note: Patient presents today for a CYSTOSCOPY Procedure: Meds: Vesicare Allergies to Antibiotic: No Known Allergies Blood Thinner: None Urinalysis test clear for Cysto? YES Disposable Uro-G HD Cystoscope Cannula: Lot: [id number] Exp: 11/06/2026 Dental Prosthetist Required: No Accompanied by: Self / Same As Patient Allergies No Known Allergies Allergy (Verified 03/25/24 15:01) HPI Comments Details: Joselito is a pleasant male. He is a patient of Dr. Mayberry. He is seen for the following urologic conditions - urinary urgency and frequency Cystoscopy today Main finding was trigonitis Will trial trimethoprim for 90 days Lower urinary tract symptoms Initially had presented with urinary urgency and frequency Pain towards the end of urination Presumed prostatitis Failed Flomax Evaluation completed with renal bladder ultrasound showing emptying, prostate volume 30 cc UA without evidence of red cells Trial of solifenacin with minimal improvement [facility] Medical History Degenerative disc disease at L5-S1 level [place] syndrome No known health problems No known health problems Surgical History History of esophagogastroduodenoscopy (EGD) Family History Father Substance use disorder Social History Housing: House Patient Tobacco Use Status: Never used Tobacco e-Cigarette/Vaping Use: Never Used Second Hand Smoke Exposure: No service: No Current occupational status: employed 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 Current occupational exposures/hazards: Yes Cognitive needs: No Hearing needs: No Vision needs: No Review of Systems Const Denies chills and Denies fever(s) Card Reports no additional complaints and Denies syncope Resp Denies cough GI Denies abdominal pain and Denies heartburn Reports as per HPI and Denies change in libido Neuro Denies syncope Psych Denies change in libido Endo Denies change in libido Physical Exam Const General: cooperative, healthy appearing, comfortable and no acute distress Orientation/consciousness: patient oriented x3 HEENT Face and sinus: Yes normal facial exam Mouth: moist mucous membranes Neck Neck: Yes normal visual inspection, Yes full ROM and Yes trachea midline Chest Chest palpation & inspection: normal inspection of the chest Resp Effort & Inspection: normal respiratory effort, able to speak in complete sentences and no respiratory distress GI Inspection: Yes normal to inspection Back/Spine/Pelvis Cervical Spine: normal cervical lordosis Thoracic/Lumbar Spine: thoracic and lumbar spine normal to inspection Skin General skin exam: no rashes or lesions noted Neuro General: patient oriented x3, gait normal, tone normal and moves all extremities Extrem General: Yes normal to inspection and Yes capillary refill normal Office Procedures Cystoscopy Consent Discussed risk and benefit or proposed procedure with the patient. Information consent for procedure given to the patient. Discussed technical aspects, risks, benefits and alternatives in full. Addressed all of the patient's questions and concerns regarding the procedure. The patient demonstrated knowledge and understanding. They wish to proceed with this procedure. Preparation The patient was prepped in the usual manner. A necktie turner was present and in the room. Genitalia was prepped with betadine solution in a sterile manner. Lidocaine Jelly 2% was placed into the urethra and 16Fr flexible Olympus cystoscope was inserted into the meatus after adequate lubrication. Procedure Cystoscopy performed using a disposable Urovue digital 16 Welsh cystoscope. Meatus circumcised Urethra anterior and posterior urethra normal Prostatic Urethra unremarkable Bladder examination with retroflexion of cystoscope Bladder Orifices normal shape and position - trigonitis on retroflexion Bladder Capacity - Trabeculations - Cellule Formation - Diverticulum Formation -- Mucosal Erythema trigonitis Bladder Tumor - [id number] DISPOSABLE SCOPE URO-G FLEXIBLE SCOPE Procedure code (CPT) selection complete Office Meds lidocaine HCl 2 % mucosal jelly in applicator Performing Provider: Janes Baltazar MD Performing Location[facility] Administered by: Andressa Mahmood RN on 03/25/24 15:26 Dose Route Admin Location Dispensed Lot Number Expiration Date [facility] Learning Coordinator 10 mL intra-urethral 10 mL nitrofurantoin monohydrate/macrocrystals 100 mg capsule Performing Provider: Janes Baltazar MD Performing Location: [facility] Administered by: Andressa Mahmood RN on 03/25/24 15:26 Dose Route Admin Location Dispensed Lot Number Expiration Date NDC Learning Coordinator 100 mg PO 1 cap naproxen 500 mg tablet Performing Provider: Janes Baltazar MD Performing Location: [facility] Administered by: Andressa Mahmood RN on 03/25/24 15:26 Dose Route Admin Location Dispensed Lot Number Expiration Date NDC Learning Coordinator 500 mg PO 1 tab Results AMB Urinalysis, Automated UA Leukoctes 0 Pamela/uL Last Edit by HARMEET Mercado on 03/25/24 15:21 UA Nitrite Negative Last Edit by Hiram Sarmiento [facility] on 03/25/24 15:21 UA Urobilinogen 0.2 mg/dL Last Edit by HARMEET Mercado on 03/25/24 15:2 1 UA Protein 0 mg/dL Last Edit by Hiram Sarmiento [facility] on 03/25/24 15:21 UA pH 6.0 Last Edit by Hiram Sarmiento [facility] on 03/25/24 15:21 UA Blood 0 Willian/uL Last Edit by Hiram Sarmiento [facility] on 03/25/24 15:21 UA Specific [place] 1.005 Last Edit by HARMEET Mercado on 03/25/24 15: 21 UA Ketone Negative Last Edit by Hiram Sarmiento Ronal on 03/25/24 15:21 UA Bilirubin 0 mg/dL Last Edit by Hiram Sarmiento [facility] on 03/25/24 15:21 UA Glucose 0 mg/dL Last Edit by Hiram Sarmiento [facility] on 03/25/24 15:21 Results Reviewed Results Reviewed: Laboratory Last Values Urine pH (Auto) 6.0 03/25/24 15:01 Specific [place] (Auto) 1.005 03/25/24 15:01 Urine Protein (Auto) 0 mg/dL 03/25/24 15:01 Glucose (UA)(Auto) 0 mg/dL 03/25/24 15:01 Urine Ketones (Auto) Negative 03/25/24 15:01 Urine Blood (Auto) 0 Willian/uL 03/25/24 15:01 Urine Nitrite (Auto) Negative 03/25/24 15:01 Urine Bilirubin (Auto) 0 mg/dL 03/25/24 15:01 Urine Urobilinogen (Auto) 0.2 mg/dL 03/25/24 15:01 Leukocyte Esterase (Auto) 0 Pamela/uL 03/25/24 15:01 Assessment & Plan Assessment & Plan (1) Trigonitis: Code(s): N30.30 - Trigonitis without hematuria Category: Medical Plan Three-month follow-up tele Orders: Orders AMB Urinalysis Automated 03/25/24 Z13.9 - Encounter for screening, unspecified AMB Cystoscopy 03/25/24 R30.0 - Dysuria, R35.0 - Frequency of micturition, R39.15 - Urgency of urination Medications: New trimethoprim 100 mg PO DAILY 90 tabs 0RF 90 days N30.30 - Trigonitis without hematuria Patient Instructions: Imaging studies, laboratory and physical exam results were discussed and reviewed in detail. No major barriers to patient understanding were identified. An opportunity to ask questions regarding the treatment plan was provided. All questions were answered. The patient expressed understanding and agreement with the above treatment plan. The patient is aware they should contact our office by phone for worsening of their current condition or the appearance of new urologic symptoms. Compliance is encouraged with any medications and followup testing that is ordered. It is a privilege to participate in the urologic care of your patient. If you have any questions or concerns regarding treatment for the above conditions, or other urologic issues, please do not hesitate to contact me. The office telephone contact is [phone]. This note is constructed using voice recognition software. While every effort has been made to ensure accuracy transcription coordinator errors may have been included. Yours sincerely, Dr Janes Baltazar MD, [facility] - Urology Providers of Expert, Compassionate Care for the Genitourinary System Coding Level of Care Code Est Pt Level 4 (43313) Diagnoses Trigonitis N30.30 CPT Codes Cystoscopy - CPT: 84567-Nzekdroeis ([id number])
== END 2024-03-25 15:41 | disposition home or self-care (01) ==
PROVIDERS: PCP Nurse Practitioner Family; Visit Provider Urology
DX: N30.30 Trigonitis without hematuria (principal)
CPT/HCPCS: 52000; 99214

== ENCOUNTER → 2024-03-25 14:51 | Outpatient (BNVA) | payer OTHER, SELFPAY | PROVIDERS: PCP Nurse Practitioner Family; Visit Provider Urology | DX: N30.30 Trigonitis without hematuria (principal) | CPT/HCPCS: 52000; 81003 ==

== ENCOUNTER 2024-05-26 15:35 | Outpatient (AMB) | payer BC, SELFPAY ==
[2024-05-26 15:44] VITALS: BP 132/82; PULSE 70; O2SAT 98; BMI 37.0
--- NOTE | 2024-05-26 15:44 | A.OFFPC_ITS ---
Vital Signs 05/26/24 15:44 Height 6 ft 1 in Weight 280 lb 4 oz BMI 37.0 BP 132/82 Blood Pressure Location Lt brachial Position Sitting Pulse 70 Pulse Source Pulse Oximeter Pulse Oximetry (%) 98 Oxygen Delivery Method Room Air Intake Visit Reasons: 6 month follow up Allergies No Known Allergies Allergy (Verified 05/26/24 15:44) Tobacco use date assessed: 05/26/24 Dental Screening Dental Screen Date: 05/26/24 Did you have a dental visit in the last 12 months?: Yes Did you have a dental problem in the last 6 months where you did not have access to dental care?: No Was dental information given to patient?: Patient has dentist HPI 6 month follow up HPI Details Pt presents for follow up of lower back pain. He had an MRI which showed moderately severe degenerative disc disease at L5-S1. There is a mild thoracolumbar dextroscoliosis. He has seen the spine center, see last note. Pt is not interested in surgery at this time. He is going to PT which helps somewhat. Denies any signs of cauda equina. 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 1. Little interest or pleasure in doing things: not at all 2. Feeling down, depressed, or hopeless: not at all 3. Trouble falling or staying asleep, or sleeping too much: several days 4. Feeling tired or having little energy: several days 5. Poor appetite or overeating: not at all 6. Feeling bad about yourself - or that you are a failure or have let yourself or your family down: not at all 7. Trouble concentrating on things, such as reading the newspaper or watching television: not at all 8. Moving or speaking so slowly that other people could have noticed. Or the opposite - being so fidgety or restless that you have been moving around a lot more than usual: not at all 9. Thoughts that you would be better off or of hurting yourself in some way: not at all Total score: 2 Depression Screening Interpretation: Negative Depression Screening Done: Yes 05738 - PHQ-9 Billing: Yes Source: Developed by Drs. Salvador Sofia, Concetta Young, Paul Powell and colleagues, with an educational willi from [employer]. Thrive Questionnaire Date Thrive assessed: 05/26/24 I am a: Patient What is your living situation today?: I have a steady place to live Within the past 12 months, did the food you bought not last and you didn't have the money to get more?: Never true Within the past 12 months, did you worry whether your food would run out before you got money to buy more?: Never true Do you have trouble paying for medicines?: No Do you have trouble getting transportation to medical appointments?: No Do you have trouble paying your heating and electricity bill?: No Do you have trouble taking care of your child, family member or friend?: No Do you have trouble with day-to-day activities such as bathing, preparing meals, shopping, managing finances, etc.?: No Are you currently unemployed and looking for a job?: No Are you interested in more education?: No Please select the resources that you would like help with: Housing/[facility] Currently or been in a relationship where the following occur: No concerns reported THRIVE Score: 0 AUDIT C Alcohol Use Questionnaire (AUDIT-C) 1. How often do you have a drink containing alcohol?: Never 3. How often do you have six or more drinks on one occasion?: Never Total Score: 0 Score Reviewed/Action Taken: Yes CIERRA-7 AMB Questionnaire CIERRA-7 Date CIERRA - 7 assessed: 05/26/24 Feeling nervous, anxious, or on edge: 1 = Several days Not being able to stop or control worryin = Several days Worrying too much about different things: 1 = Several days Trouble relaxin = Several days Being so restless that it is hard to sit still: 1 = Several days Becoming easily annoyed or irritable: 1 = Several days Feeling afraid as if something awful might happen: 1 = Several days Total CIERRA-7 score (0-4 normal; 5-9 mild; 10-14 moderate; 15-21 severe): 7 Source: Developed by Drs. Salvador Sofia, Concetta Young, Paul Powell and colleagues, with an educational willi from [employer]. CIERRA-7 Assessment Billing CIERRA-7 Assessment Tool: CIERRA-7 Assessment 71431 Review of Systems Const Reports as per HPI Physical exam (Primary Care) Vital Signs: Last Vital Signs Pulse 70 05/26/24 15:44 BP 132/82 05/26/24 15:44 Pulse Ox 98 05/26/24 15:44 Oxygen Delivery Method Room Air 05/26/24 15:44 BMI result Body Mass Index 37.0 Tobacco/Smoking Status: Tobacco use Status Tobacco use date assessed 05/26/24 05/26/24 15:45 Patient Tobacco Use Status Never used Tobacco 05/26/24 15:45 e-Cigarette/Vaping Use Never Used 05/26/24 15:45 PHQ-9: PHQ-9 Score PHQ-9: Total score 2 05/26/24 16:41 Depression Screening Interpretation: Negative Thrive Assessment: Date of Thrive Assessment Date Thrive assessed 05/26/24 05/26/24 15:45 Currently or been in a relationship where the following occur: No concerns reported Const General: cooperative Nutritional Appearance: obese Orientation/consciousness: patient oriented x3 Resp Effort & Inspection: normal respiratory effort Auscultation: clear to auscultation bilaterally Cardio Rate: regular rate Rhythm: regular rhythm Heart sounds: S1 normal heart sound present and S2 normal heart sound present Neuro General: patient oriented x3 Extrem Right lower extremity: no edema Left lower extremity: no edema Psych Appearance: grossly normal Mental Status: mental status grossly normal Speech and movement: Normal speech and movement present Affect: normal affect Attitude: cooperative Thought process: Normal thought process present Thought content: Normal thought content present Insight: Good insight present (Psych) Judgement: Good judgement present (Psych) Assessment and Plan Assessment & Plan (1) Lumbar back pain with radiculopathy affecting left lower extremity: Code(s): M54.16 - Radiculopathy, lumbar region Plan: Continue PT (2) Degenerative disc disease at L5-S1 level: Code(s): M51.37 - Other intervertebral disc degeneration, lumbosacral region Plan: Continue PT Plan The patient agreed to the use of a medical billing coordinator for this encounter. Scribed for ZARINA Ashraf by Zamzam Harvey medical billing coordinator, on 05/26/2024 at 16:40 EST. Coding Level of Care Code Est Pt Level 3 (53218) Diagnoses Lumbar back pain with radiculopathy affecting left lower extremity M54.16 Degenerative disc disease at L5-S1 level M51.37 Additional Codes CIERRA-7 Assessment Billing - CIERRA-7 Assessment Tool: CIERRA-7 Assessment 24643 ([id number])
== END 2024-05-26 17:01 | disposition home or self-care (01) ==
PROVIDERS: PCP Nurse Practitioner Family; Visit Provider Nurse Practitioner Family
DX: M54.16 Radiculopathy, lumbar region (principal); M51.37 Other intervertebral disc degeneration, lumbosacral region
CPT/HCPCS: 99213

== ENCOUNTER 2024-06-25 15:39 | Outpatient (AMB) | payer BC, SELFPAY ==
--- NOTE | 2024-06-25 15:40 | MHC.OFFVIS ---
Intake Visit Reasons: 3m follow up(Trigonitis) Intake Note: Patient is present for tele follow up Urology Med: [facility] Antibiotic Allergies: None Blood Thinner: None Allergies No Known Allergies Allergy (Verified 05/26/24 15:44) HPI Comments Details: Joselito is a pleasant male. He is a patient of Dr. Mayberry. He is seen for the following urologic conditions - urinary urgency and frequency Telemedicine Evaluation 15 min Consultation [facility] (formerly [facility]) Mily Video Resolution of symptoms P.r.n. follow-up Lower urinary tract symptoms Initially had presented with urinary urgency and frequency Pain towards the end of urination Presumed prostatitis Failed Flomax Evaluation completed with renal bladder ultrasound showing emptying, prostate volume 30 cc UA without evidence of red cells Trial of solifenacin with minimal improvement PFSH Medical History Degenerative disc disease at L5-S1 level [place] syndrome No known health problems No known health problems Surgical History History of esophagogastroduodenoscopy (EGD) Family History Father Substance use disorder Social History Housing: House Patient Tobacco Use Status: Never used Tobacco e-Cigarette/Vaping Use: Never Used Second Hand Smoke Exposure: No service: No Current occupational status: employed 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 Current occupational exposures/hazards: Yes Cognitive needs: No Hearing needs: No Vision needs: No Review of Systems Const All systems reviewed & are unremarkable except as noted in HPI and below Reports no additional complaints Resp Reports no additional complaints GI Reports no additional complaints Reports as per HPI Musc Reports no additional complaints Physical Exam Telemedicine evaluation Appropriate responses Regular breathing rate and rhythm HEENT Head: Yes normal to inspection Ears: hearing grossly normal bilaterally Eyes General: appearance normal, both eyes and all related structures Neck Neck: Yes normal visual inspection Chest Chest palpation & inspection: normal inspection of the chest Resp Effort & Inspection: normal respiratory effort and able to speak in complete sentences Telehealth Telehealth Location of provider rendering services: practice address Location of patient: address on file Patient Identification confirmed using: Name, : Yes Telehealth method: voice only Patient verbally consented to treatment: Yes Patient verbally consented to billing insurance company: Yes Patient informed of any privacy concerns related to visit: Yes Assessment & Plan Assessment & Plan (1) Trigonitis: Code(s): N30.30 - Trigonitis without hematuria Category: Medical Plan P.r.n. follow-up Patient Instructions: Imaging studies, laboratory and physical exam results were discussed and reviewed in detail. No major barriers to patient understanding were identified. An opportunity to ask questions regarding the treatment plan was provided. All questions were answered. The patient expressed understanding and agreement with the above treatment plan. The patient is aware they should contact our office by phone for worsening of their current condition or the appearance of new urologic symptoms. Compliance is encouraged with any medications and followup testing that is ordered. It is a privilege to participate in the urologic care of your patient. If you have any questions or concerns regarding treatment for the above conditions, or other urologic issues, please do not hesitate to contact me. The office telephone contact is [phone]. This note is constructed using voice recognition software. While every effort has been made to ensure accuracy skip hoist operator errors may have been included. Yours sincerely, Dr Janes Baltazar MD, [facility] Providers of Expert, Compassionate Care for the Genitourinary System Coding Level of Care Code Tele Est Pt Level 3 (84967) Diagnoses Trigonitis N30.30
== END 2024-06-25 16:00 | disposition home or self-care (01) ==
LOC: HO.HUSH 15:39
PROVIDERS: PCP Nurse Practitioner Family; Visit Provider Urology
DX: N30.30 Trigonitis without hematuria (principal)
CPT/HCPCS: 99442

== ENCOUNTER → 2024-06-25 15:39 | Outpatient (BNVA) | payer BC, SELFPAY | PROVIDERS: PCP Nurse Practitioner Family; Visit Provider Urology ==

== ENCOUNTER 2024-12-27 08:03 | Outpatient (REF) | payer BC, SELFPAY ==
[2024-12-27 08:19] LABS: MANUAL DIFF FLAG NO
[2024-12-27 09:10] LABS: Basophils Percent Auto 0.6 % (0-2); Eosinophils Absolute Auto 0.1 X10*3/uL (0.0-0.4); Eosinophils Percent Auto 2.8 % (0-4); Hematocrit 43.6 % (42.0-52.0); Imm Gran Abs Auto 0.01 X10*3/uL (0.00-0.03); Imm Gran Pct Auto 0.2 % (0.0-0.4); Lymphocytes Absolute Auto 1.9 X10*3/uL (1.2-4.9); Lymphocytes Percent Auto 40.4 % (20-40); Mean Corpuscular HGB Conc 34.4 g/dl (31.0-36.0); Mean Corpuscular Hemoglobin 30.2 pg (27.0-33.0); Mean Corpuscular Volume 87.9 fL (80.0-98.0); Mean Platelet Volume 8.5 fL (9.4-12.4); Monocytes Absolute Auto 0.4 X10*3/uL (0.1-1.2); Monocytes Percent Auto 9.1 % (2-11); Neutrophils Absolute Auto 2.2 x10*3/uL (2.0-8.3); Neutrophils Percent Auto 46.9 % (45-73); Platelet Count 252 X10*3/uL (160-400); Red Blood Count 4.96 X10*6/uL (4.60-5.80); Red Cell Distribution Width 12.8 % (11.0-16.0); White Blood Count 4.6 X10*3/uL (4.8-10.8)
[2024-12-27 09:23] LABS: Appearance Urine Clear; Color Urine Yellow; Glucose Urine UA Negative (Negative); Leukocyte Esterase Urine Negative (Negative); Nitrite Urine Negative (Negative); Urine Blood Negative (Negative); Urine Ketones Negative (Negative); Urine Protein Negative (Neg-Trace)
[2024-12-27 10:15] LABS: Alanine Aminotransferase 34 U/L (0-40); Albumin Level 4.3 g/dL (3.5-5.0); Alkaline Phosphatase 51 U/L (39-117); Anion Gap 11 (12-20); Aspartate Amino Transferase 25 U/L (5-37); Bilirubin Total 1.9 mg/dL (0.0-1.0); Blood Urea Nitrogen 10 mg/dL (9-16); Calcium 9.4 mg/dL (8.4-10.2); Carbon Dioxide 25 mmol/L (22-29); Chloride 107 mmol/L (96-108); Cholesterol 143 mg/dL (<200); Estimated Glomerular Filt Rate > 60; Glucose Fasting 96 mg/dL (60-99); HDL Cholesterol 41 mg/dL (>40); LDL Cholesterol Calculated 84 mg/dL (<100); Potassium 4.1 mmol/L (3.3-5.1); Sodium 139 mmol/L (135-145); Total Protein 7.5 g/dL (6.5-8.0); Triglycerides 93 mg/dL (<150)
[2024-12-27 10:53] LABS: TSH reflex Free T4 1.12 uIU/mL (0.32-4.0); Vitamin D 25-OH Total 26.2 ng/mL (>30)
== END 2024-12-27 08:04 | disposition home or self-care (01) ==
LOC: HO.LAB 08:03
PROVIDERS: PCP Nurse Practitioner Family; Visit Provider Nurse Practitioner Family
DX: Z00.00 Encounter for general adult medical examination without abnormal findings (principal)
CPT/HCPCS: 36415; 80053; 80061; 81003; 82306; 84443; 85025

== ENCOUNTER 2024-12-29 15:34 | Outpatient (AMB) | payer BC, SELFPAY ==
[2024-12-29 15:43] VITALS: BP 138/76; PULSE 63; RESP 18; O2SAT 99; BMI 37.8
--- NOTE | 2024-12-29 15:43 | A.OFFPC_ITS ---
Vital Signs 12/29/24 15:43 Height 6 ft 1 in Weight 286 lb 6 oz BMI 37.8 BP 138/76 Blood Pressure Location Rt brachial Position Sitting Respiration 18 Pulse 63 Pulse Source Pulse Oximeter Pulse Oximetry (%) 99 Oxygen Delivery Method Room Air Intake Visit Reasons: PE Intake Note: Pt is here today for his Annual Physical Allergies No Known Allergies Allergy (Verified 12/29/24 17:06) Medication List - Last Reconciled 12/29/24 by JUAN MANUEL Urbina omeprazole 20 mg PO DAILY Tobacco use date assessed: 12/29/24 Dental Screening Dental Screen Date: 12/29/24 Did you have a dental visit in the last 12 months?: Yes Did you have a dental problem in the last 6 months where you did not have access to dental care?: No Was dental information given to patient?: Patient has dentist HPI PE HPI Details History of Present Illness The patient is a 29-year-old male presenting with frequent urination. He reports a history of prostatitis and has been under the care of urology. Despite a months-long course of antibiotics, he did not experience relief of symptoms. The possibility of interstitial cystitis or painful bladder syndrome has been raised, and he is to follow up with urology regarding this. There is an ongoing experience of anxiety. Health Maintenance Social History - Exercise and activity level were not d iscussed. - Substance use, diet, and family detail s were not mentioned. Review of Systems - Cardiovascular: Denies chest pain or s hortness of breath. - Gastrointestinal: Denies nausea, vomit ing, blood in stool, constipation, and diarrhea. - General: Denies fevers and chills. - Psychological: Reports anxiety. Denies suicidal and homicidal ideation. Physical Exam General: Cooperative, healthy appearing, comfortable, no acute distress and well developed Orientation: Patient oriented x3 Limitations: No limitations Head: Normal to inspection Ears: Hearing grossly normal bilaterally Nose: Normal external nose present Face and sinus: Normal facial exam Eyes: Appearance normal, both eyes and all related structures Neck: Normal visual inspection and Yes full ROM Respiratory: Normal respiratory effort and able to speak in complete sentences. Clear to auscultation bilaterally Cardiovascular: Regular rate and rhythm. Normal S1 and S2 GI: Normal to inspection. Soft to palpation and nontender Skin: No rashes or lesions noted Neuro: Patient oriented x3 Extremities: Normal to inspection Results Plan - Continue consultation with urology for further investigation of frequent urination and possible prostatitis or interstitial cystitis/painful bladder syndrome. - Initiate treatment for anxiety with a low dose of buspirone - Monitor progress and side effects of t he anxiety medication through patient- reported outcomes via the patient portal. Patient was informed and verbally consented to the use of an ambient scribe for clinic note documentation during this visit. Discussion Notes I discussed with the patient the ongoing evaluation and management of his frequent urination, likely caused by prostatitis with a potential component of interstitial cystitis or painful bladder syndrome. The patient's history of anti biotic therapy was noted, and his lack of symptom resolution was acknowledged. Urology follow-up is emphasized for a thorough evaluation and treatment. For his anxiety, initiation of buspirone was agreed upon, and follow-up will occur remotely to assess efficacy and tolerability. I detailed the importance of communicating any adverse effects or concerns through the patient portal. Patient Instructions - Follow up with urology as planned for your urinary symptoms. - Begin taking the prescribed buspirone for anxiety. - Report any side effects or concerns ab out the new medication through the patient portal. - Seek medical attention if you experien ce any new or worsening symptoms. 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 1. Little interest or pleasure in doing things: not at all 2. Feeling down, depressed, or hopeless: several days 3. Trouble falling or staying asleep, or sleeping too much: nearly every day 4. Feeling tired or having little energy: several days 5. Poor appetite or overeating: several days 6. Feeling bad about yourself - or that you are a failure or have let yourself or your family down: not at all 7. Trouble concentrating on things, such as reading the newspaper or watching television: not at all 8. Moving or speaking so slowly that other people could have noticed. Or the opposite - being so fidgety or restless that you have been moving around a lot more than usual: not at all 9. Thoughts that you would be better off or of hurting yourself in some way: not at all Total score: 6 Depression Screening Interpretation: Negative Depression Screening Done: Yes 20633 - PHQ-9 Billing: Yes Source: Developed by Drs. Salvador Sofia, Concetta Young, Paul Powell and colleagues, with an educational willi from [employer]. Thrive Questionnaire Date Thrive assessed: 12/29/24 I am a: Patient What is your living situation today?: I have a steady place to live Within the past 12 months, did the food you bought not last and you didn't have the money to get more?: Never true Within the past 12 months, did you worry whether your food would run out before you got money to buy more?: Never true Do you have trouble paying for medicines?: No Do you have trouble getting transportation to medical appointments?: No Do you have trouble paying your heating and electricity bill?: No Do you have trouble taking care of your child, family member or friend?: No Do you have trouble with day-to-day activities such as bathing, preparing meals, shopping, managing finances, etc.?: No Are you currently unemployed and looking for a job?: No Are you interested in more education?: No Please select the resources that you would like help with: None Currently or been in a relationship where the following occur: No concerns reported THRIVE Score: 0 AUDIT C Alcohol Use Questionnaire (AUDIT-C) 1. How often do you have a drink containing alcohol?: Never 3. How often do you have six or more drinks on one occasion?: Never Total Score: 0 Score Reviewed/Action Taken: Yes CIERRA-7 AMB Questionnaire CIERRA-7 Date CIERRA - 7 assessed: 12/29/24 Feeling nervous, anxious, or on edge: 3 = Nearly every day Not being able to stop or control worryin = Nearly every day Worrying too much about different things: 1 = Several days Trouble relaxin = Nearly every day Being so restless that it is hard to sit still: 3 = Nearly every day Becoming easily annoyed or irritable: 3 = Nearly every day Feeling afraid as if something awful might happen: 1 = Several days Total CIERRA-7 score (0-4 normal; 5-9 mild; 10-14 moderate; 15-21 severe): 17 Source: Developed by Drs. Salvador Sofia, Concetta Young, Paul Powell and colleagues, with an educational willi from [employer]. CIERRA-7 Assessment Billing CIERRA-7 Assessment Tool: CIERRA-7 Assessment 50364 (denies any si or hi, starting buspirone today) Physical exam (Primary Care) Vital Signs: Last Vital Signs Pulse 63 12/29/24 15:43 Resp 18 12/29/24 15:43 BP 138/76 12/29/24 15:43 Pulse Ox 99 12/29/24 15:43 Oxygen Delivery Method Room Air 12/29/24 15:43 BMI result Body Mass Index 37.8 Tobacco/Smoking Status: Tobacco use Status Tobacco use date assessed 12/29/24 12/29/24 15:49 Patient Tobacco Use Status Never used Tobacco 12/29/24 15:45 e-Cigarette/Vaping Use Never Used 12/29/24 15:45 PHQ-9: PHQ-9 Score PHQ-9: Total score 6 12/29/24 15:49 Depression Screening Interpretation: Negative Thrive Assessment: Date of Thrive Assessment Date Thrive assessed 12/29/24 12/29/24 15:49 Currently or been in a relationship where the following occur: No concerns reported Coding Level of Care Code Est Pt Level 3 (19964) Diagnoses Urinary frequency R35.0 Physical exam Z00.00 Anxiety F41.9 Additional Codes PHQ-9 - 76918 - PHQ-9 Billing: Yes ([id number]) CIERRA-7 Assessment Billing - CIERRA-7 Assessment Tool: CIERRA-7 Assessment 38005 ([id number]) Assessment & Plan Assessment & Plan (1) Urinary frequency: Code(s): R35.0 - Frequency of micturition Category: Medical (2) Physical exam: Code(s): Z00.00 - Encounter for general adult medical examination without abnormal findings Category: Medical (3) Anxiety: Code(s): F41.9 - Anxiety disorder, unspecified Category: Medical Plan . Medications: New phenazopyridine (Pyridium) 200 mg PO BID 6 days 12 tabs 0RF buspirone 5 mg PO BID 30 days 60 tabs 3RF
== END 2024-12-29 16:58 | disposition home or self-care (01) ==
PROVIDERS: PCP Nurse Practitioner Family; Visit Provider Nurse Practitioner Family
DX: R35.0 Frequency of micturition (principal); Z00.00 Encounter for general adult medical examination without abnormal findings; F41.9 Anxiety disorder, unspecified

== ENCOUNTER → 2024-12-29 15:34 | Outpatient (BNVA) | payer BC, SELFPAY | PROVIDERS: PCP Nurse Practitioner Family; Visit Provider Nurse Practitioner Family | DX: Z00.00 Encounter for general adult medical examination without abnormal findings (principal); R35.0 Frequency of micturition; F41.9 Anxiety disorder, unspecified | CPT/HCPCS: 96127 ==

== ENCOUNTER 2025-02-09 15:33 | Outpatient (AMB) | payer BC, SELFPAY ==
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
[2025-02-09 15:41] VITALS: BP 118/76; PULSE 72; O2SAT 98
== END 2025-02-09 16:07 | disposition home or self-care (01) ==
PROVIDERS: PCP Nurse Practitioner Family; Visit Provider Nurse Practitioner Family
DX: M51.379 Other intervertebral disc degeneration, lumbosacral region without mention of lumbar back pain or lower extremity pain (principal)

== ENCOUNTER → 2025-02-09 15:33 | Outpatient (BNVA) | payer BC, SELFPAY | PROVIDERS: PCP Nurse Practitioner Family; Visit Provider Nurse Practitioner Family | DX: Z13.89 Encounter for screening for other disorder (principal) ==

== ENCOUNTER 2025-02-25 15:09 | Outpatient (AMB) | payer BC, SELFPAY ==
--- NOTE | 2025-02-25 15:15 | A.OFFVIS_ITS ---
Intake Visit Reasons: urinary urgency and frequency Intake Note: Patient is present for URINARY URGENCY AND FREQUENCY Urology Medication:NONE Antibiotic Allergy:NONE Blood Thinner:NONE TODAY'S PVR:50ML'S Mds Nurse Required: No Allergies No Known Allergies Allergy (Verified 02/25/25 15:17) HPI Comments Details: Joselito is a pleasant male. He is a patient of Dr. Mayberry. He is seen for the following urologic conditions - urinary urgency and frequency - prostatitis Prior presentation with prostatitis June 2024 2nd presentation On exam boggy prostate right base Treat combination therapy Lower urinary tract symptoms Initially had presented with urinary urgency and frequency Pain towards the end of urination Presumed prostatitis Failed Flomax Evaluation completed with renal bladder ultrasound showing emptying, prostate volume 30 cc UA without evidence of red cells Trial of solifenacin with minimal improvement PFSH Medical History Degenerative disc disease at L5-S1 level [place] syndrome No known health problems No known health problems Surgical History History of esophagogastroduodenoscopy (EGD) Family History Father Substance use disorder Social History Housing: House Patient Tobacco Use Status: Never used Tobacco e-Cigarette/Vaping Use: Never Used Second Hand Smoke Exposure: No service: No Current occupational status: employed Current occupation: [employer] Current occupational exposures/hazards: Yes Cognitive needs: No Hearing needs: No Vision needs: No Review of Systems Const Denies chills and Denies fever(s) Card Reports no additional complaints and Denies syncope Resp Denies cough GI Denies abdominal pain and Denies heartburn Reports as per HPI and Denies change in libido Neuro Denies syncope Psych Denies change in libido Endo Denies change in libido Physical Exam Const General: cooperative, healthy appearing, comfortable and no acute distress Orientation/consciousness: patient oriented x3 HEENT Face and sinus: Yes normal facial exam Mouth: moist mucous membranes Neck Neck: Yes normal visual inspection, Yes full ROM and Yes trachea midline Chest Chest palpation & inspection: normal inspection of the chest Resp Effort & Inspection: normal respiratory effort, able to speak in complete sentences and no respiratory distress GI Inspection: Yes normal to inspection Rectal Exam - Male: Yes normal sphincter tone and Yes prostate normal Male General Exam: Yes normal external exam Penis: normal penis and circumcised Meatus: meatus normal Scrotum: scrotum normal Testes: Testes normal Back/Spine/Pelvis Cervical Spine: normal cervical lordosis Thoracic/Lumbar Spine: thoracic and lumbar spine normal to inspection Skin General skin exam: no rashes or lesions noted Neuro General: patient oriented x3, gait normal, tone normal and moves all extremities Extrem General: Yes normal to inspection and Yes capillary refill normal Office Procedures Post Void Residual Post Residual Void Post Void Residual (PVR): 50 [id number] Void Residual by ultrasound Results AMB Urinalysis, Automated UA Leukoctes 0 Pamela/uL Last Edit by BELA Patricia on 02/25/25 15:32 UA Nitrite Negative Last Edit by BELA Patricia on 02/25/25 15:32 UA Urobilinogen 0.2 mg/dL Last Edit by BELA Patricia on 02/25/25 15:3 2 UA Protein 0 mg/dL Last Edit by BELA Patricia on 02/25/25 15:32 UA pH 6.0 Last Edit by BELA Patricia on 02/25/25 15:32 UA Blood 0 Willian/uL Last Edit by BELA Patricia on 02/25/25 15:32 UA Specific [place] 1.010 Last Edit by BELA Patricia on 02/25/25 15: 32 UA Ketone Negative Last Edit by BELA Patricia on 02/25/25 15:32 UA Bilirubin 0 mg/dL Last Edit by BEAL Patricia on 02/25/25 15:32 UA Glucose 0 mg/dL Last Edit by BELA Patricia on 02/25/25 15:32 Results Reviewed Results Reviewed: Laboratory Last Values Urine pH (Auto) 6.0 02/25/25 15:31 Specific [place] (Auto) 1.010 02/25/25 15:31 Urine Protein (Auto) 0 mg/dL 02/25/25 15:31 Glucose (UA)(Auto) 0 mg/dL 02/25/25 15:31 Urine Ketones (Auto) Negative 02/25/25 15:31 Urine Blood (Auto) 0 Willian/uL 02/25/25 15:31 Urine Nitrite (Auto) Negative 02/25/25 15:31 Urine Bilirubin (Auto) 0 mg/dL 02/25/25 15:31 Urine Urobilinogen (Auto) 0.2 mg/dL 02/25/25 15:31 Leukocyte Esterase (Auto) 0 Pamela/uL 02/25/25 15:31 Assessment & Plan Assessment & Plan (1) Prostatitis: Code(s): N41.9 - Inflammatory disease of prostate, unspecified Category: Medical Plan Prostatitis management 2 month follow-up office Orders: Orders AMB Urinalysis Automated 02/25/25 Z13.9 - Encounter for screening, unspecified Medications: New amoxicillin-pot clavulanate 500-125 mg (Augmentin) 1 tab PO Q8H 42 tabs 0RF 14 days N39.0 - Urinary tract infection, site not specified meloxicam 15 mg PO DAILY 30 tabs 0RF 30 days R10.31 - Right lower quadrant pain, R10.32 - Left lower quadrant pain prednisone 20 mg PO DAILY 5 tabs 0RF 5 days N20.0 - Calculus of kidney Patient Instructions: This note is constructed using voice recognition software. While every effort has been made to ensure accuracy gang vibrator operator errors may have been included. Imaging studies, laboratory and physical exam results were discussed and reviewed in detail. No major barriers to patient understanding were identified. An opportunity to ask questions regarding the treatment plan was provided. All questions were answered. The patient expressed understanding and agreement with the above treatment plan. The patient is aware they should contact our office by phone for worsening of their current condition or the appearance of new urologic symptoms. Compliance is encouraged with any medications and followup testing that is ordered. It is a privilege to participate in the urologic care of your patient. If you have any questions or concerns regarding treatment for the above conditions, or other urologic issues, please do not hesitate to contact me. The office telephone contact is [phone]. Sincerely, Dr Janes Baltazar MD, [facility] - Urology Compassionate Specialist Care for the Genitourinary System Coding Level of Care Code Est Pt Level 4 (06874) Diagnoses Prostatitis N41.9 CPT Codes Post Residual Void - PVR CPT Code: 40328-Lclk Void Residual by ultrasound ([id number])
== END 2025-02-25 15:42 | disposition home or self-care (01) ==
LOC: HO.HUSH 15:10
PROVIDERS: PCP Nurse Practitioner Family; Visit Provider Urology
DX: N41.9 Inflammatory disease of prostate, unspecified (principal)
CPT/HCPCS: 99214

== ENCOUNTER → 2025-02-25 15:09 | Outpatient (BNVA) | payer BC, SELFPAY | PROVIDERS: PCP Nurse Practitioner Family; Visit Provider Urology | DX: N41.9 Inflammatory disease of prostate, unspecified (principal); R39.15 Urgency of urination; R35.0 Frequency of micturition | CPT/HCPCS: 51798; 81003 ==

== ENCOUNTER 2025-04-28 15:11 | Outpatient (AMB) | payer BC, SELFPAY ==
--- NOTE | 2025-04-28 15:24 | MHC.OFFVIS ---
Intake Visit Reasons: 2m follow up Intake Note: Patient is present for 2M F/U Urology Medication:NONE Antibiotic Allergy:NONE Blood Thinner:NONE Recruitment Assistant Required: No Allergies No Known Allergies Allergy (Verified 04/28/25 15:26) HPI Comments Details: Joselito is a pleasant male. He is a patient of Dr. Mayberry. He is seen for the following urologic conditions - urinary urgency and frequency - prostatitis Follow-up from 2nd episode prostatitis Treated with combination therapy Persistent symptoms Discomfort on ejaculation Performed [employer] [facility] [employer]) DNA sequencing from prostate specimen Treatment will be determined by sequencing findings Lower urinary tract symptoms Initially had presented with urinary urgency and frequency Pain towards the end of urination Presumed prostatitis Failed Flomax Evaluation completed with renal bladder ultrasound showing emptying, prostate volume 30 cc UA without evidence of red cells PFSH Medical History Degenerative disc disease at L5-S1 level [place] syndrome No known health problems No known health problems Surgical History History of esophagogastroduodenoscopy (EGD) Family History Father Substance use disorder Social History Housing: House Patient Tobacco Use Status: Never used Tobacco e-Cigarette/Vaping Use: Never Used Second Hand Smoke Exposure: No service: No Current occupational status: employed Current occupation: [employer] Current occupational exposures/hazards: Yes Cognitive needs: No Hearing needs: No Vision needs: No Review of Systems Const Denies chills and Denies fever(s) Card Reports no additional complaints and Denies syncope Resp Denies cough GI Denies abdominal pain and Denies heartburn Reports as per HPI and Denies change in libido Neuro Denies syncope Psych Denies change in libido Endo Denies change in libido Physical Exam Const General: cooperative, healthy appearing, comfortable and no acute distress Orientation/consciousness: patient oriented x3 HEENT Face and sinus: Yes normal facial exam Mouth: moist mucous membranes Neck Neck: Yes normal visual inspection, Yes full ROM and Yes trachea midline Chest Chest palpation & inspection: normal inspection of the chest Resp Effort & Inspection: normal respiratory effort, able to speak in complete sentences and no respiratory distress GI Inspection: Yes normal to inspection Rectal Exam - Male: Yes normal sphincter tone and Yes prostate normal Male General Exam: Yes normal external exam Penis: normal penis and circumcised Meatus: meatus normal Scrotum: scrotum normal Testes: Testes normal Back/Spine/Pelvis Cervical Spine: normal cervical lordosis Thoracic/Lumbar Spine: thoracic and lumbar spine normal to inspection Skin General skin exam: no rashes or lesions noted Neuro General: patient oriented x3, gait normal, tone normal and moves all extremities Extrem General: Yes normal to inspection and Yes capillary refill normal Results AMB Urinalysis, Automated UA Leukoctes 0 Pamela/uL Last Edit by BELA Patricia on 04/28/25 16:21 UA Nitrite Negative Last Edit by Suellen Taylor CCM on 04/28/25 16:21 UA Urobilinogen 0.2 mg/dL Last Edit by Suellen Taylor CCM on 04/28/25 16:21 UA Protein 0 mg/dL Last Edit by Suellen Taylor CCM on 04/28/25 16:21 UA pH 6.0 Last Edit by Suellen Taylor CCM on 04/28/25 16:21 UA Blood 0 Willian/uL Last Edit by Suellen Taylor CCM on 04/28/25 16:21 UA Specific [place] 1.010 Last Edit by Suellen Taylor CCM on 04/28/25 16:21 UA Ketone Negative Last Edit by BELA Patricia on 04/28/25 16:21 UA Bilirubin 0 mg/dL Last Edit by Suellen Taylor CCM on 04/28/25 16:21 UA Glucose 0 mg/dL Last Edit by Suellen Taylor CCM on 04/28/25 16:21 Assessment & Plan Assessment & Plan (1) Prostatitis: Code(s): N41.9 - Inflammatory disease of prostate, unspecified Category: Medical Plan One-week follow-up tele Orders: Orders AMB Urinalysis Automated Today Z13.9 - Encounter for screening, unspecified Patient Instructions: This note is constructed using voice recognition software. While every effort has been made to ensure accuracy mechanic insulator errors may have been included. Imaging studies, laboratory and physical exam results were discussed and reviewed in detail. No major barriers to patient understanding were identified. An opportunity to ask questions regarding the treatment plan was provided. All questions were answered. The patient expressed understanding and agreement with the above treatment plan. The patient is aware they should contact our office by phone for worsening of their current condition or the appearance of new urologic symptoms. Compliance is encouraged with any medications and followup testing that is ordered. It is a privilege to participate in the urologic care of your patient. If you have any questions or concerns regarding treatment for the above conditions, or other urologic issues, please do not hesitate to contact me. The office telephone contact is [phone]. Sincerely, Dr Janes Baltazar MD, [facility] - Urology Compassionate Specialist Care for the Genitourinary System Coding Level of Care Code Est Pt Level 4 (68601) Diagnoses Prostatitis N41.9
== END 2025-04-28 16:18 | disposition home or self-care (01) ==
LOC: HO.HUSH 15:11
PROVIDERS: PCP Nurse Practitioner Family; Visit Provider Urology
DX: N41.9 Inflammatory disease of prostate, unspecified (principal); Z13.9 Encounter for screening, unspecified
CPT/HCPCS: 99214

== ENCOUNTER → 2025-04-28 15:11 | Outpatient (BNVA) | payer BC, SELFPAY | PROVIDERS: PCP Nurse Practitioner Family; Visit Provider Urology | DX: R39.15 Urgency of urination (principal); N41.9 Inflammatory disease of prostate, unspecified | CPT/HCPCS: 81003 ==

== ENCOUNTER 2025-05-05 13:59 | Outpatient (AMB) | payer BC, SELFPAY ==
--- NOTE | 2025-05-05 13:59 | MHC.OFFVIS ---
Intake Visit Reasons: 1w f/p Intake Note: Patient is present for 1 wk follow up for prostitis Urology Medication:meloxicam, prednisone Antibiotic Allergy:NONE Blood Thinner:NONE Truck Supervisor Required: No Accompanied by: Self / Same As Patient Allergies No Known Allergies Allergy (Verified 05/05/25 14:02) HPI Comments Details: Joselito is a pleasant male. He is a patient of Dr. Mayberry. He is seen for the following urologic conditions - urinary urgency and frequency - prostatitis Telemedicine Evaluation 15 min Consultation [employer] [facility] [facility] Persistent symptoms Discomfort on ejaculation Performed [employer] DNA sequencing from prostate specimen Enterococcus faecalis. Sensitive to Augmentin or linezolid. Had previously not responded well to Augmentin. Trial 4 weeks linezolid Lower urinary tract symptoms Initially had presented with urinary urgency and frequency Pain towards the end of urination Presumed prostatitis Failed Flomax Evaluation completed with renal bladder ultrasound showing emptying, prostate volume 30 cc UA without evidence of red cells PFSH Medical History Degenerative disc disease at L5-S1 level [place] syndrome No known health problems No known health problems Surgical History History of esophagogastroduodenoscopy (EGD) Family History Father Substance use disorder Social History Housing: House Patient Tobacco Use Status: Never used Tobacco e-Cigarette/Vaping Use: Never Used Second Hand Smoke Exposure: No service: No Current occupational status: employed Current occupation: [employer] Current occupational exposures/hazards: Yes Cognitive needs: No Hearing needs: No Vision needs: No Review of Systems Const All systems reviewed & are unremarkable except as noted in HPI and below Reports no additional complaints Resp Reports no additional complaints GI Reports no additional complaints Reports as per HPI Musc Reports no additional complaints Physical Exam Telemedicine evaluation Appropriate responses Regular breathing rate and rhythm HEENT Head: Yes normal to inspection Ears: hearing grossly normal bilaterally Eyes General: appearance normal, both eyes and all related structures Neck Neck: Yes normal visual inspection Chest Chest palpation & inspection: normal inspection of the chest Resp Effort & Inspection: normal respiratory effort and able to speak in complete sentences Telehealth Telehealth Location of provider rendering services: practice address Location of patient: address on file Patient Identification confirmed using: Name, : Yes Telehealth method: voice only Patient verbally consented to treatment: Yes Patient verbally consented to billing insurance company: Yes Patient informed of any privacy concerns related to visit: Yes Assessment & Plan Assessment & Plan (1) Prostatitis: Code(s): N41.9 - Inflammatory disease of prostate, unspecified Category: Medical Plan Trial secondary medications for prostatitis Medications: New linezolid 600 mg PO BID 56 tabs 0RF 28 days N41.9 - Inflammatory disease of prostate, unspecified Patient Instructions: This note is constructed using voice recognition software. While every effort has been made to ensure accuracy physician recruiter errors may have been included. Imaging studies, laboratory and physical exam results were discussed and reviewed in detail. No major barriers to patient understanding were identified. An opportunity to ask questions regarding the treatment plan was provided. All questions were answered. The patient expressed understanding and agreement with the above treatment plan. The patient is aware they should contact our office by phone for worsening of their current condition or the appearance of new urologic symptoms. Compliance is encouraged with any medications and followup testing that is ordered. It is a privilege to participate in the urologic care of your patient. If you have any questions or concerns regarding treatment for the above conditions, or other urologic issues, please do not hesitate to contact me. The office telephone contact is [phone]. Sincerely, Dr Janes Baltazar MD, [facility] - Urology Compassionate Specialist Care for the Genitourinary System Coding Level of Care Code Tele Est Pt Level 4 (55384) Diagnoses Prostatitis N41.9
== END 2025-05-05 15:10 | disposition home or self-care (01) ==
LOC: HO.HUSH 13:59
PROVIDERS: PCP Nurse Practitioner Family; Visit Provider Urology
DX: N41.9 Inflammatory disease of prostate, unspecified (principal)
CPT/HCPCS: 99214

== ENCOUNTER 2025-06-10 18:38 | Emergency (ER) | payer BC, SELFPAY ==
--- NOTE | ~2025-06-10 | US_ITS ---
CLINICAL HISTORY: L posterior knee pain into calf --- Additional Notes or Special Instructions: ? dvt v popliteal cyst Left lower extremity venous duplex ultrasound Study was performed using color and spectral waveform analysis. Comparison: None Findings: Visualized deep veins are fully compressible with normal flow and augmentation. No popliteal cyst. No significant adenopathy. Impression: Left lower extremity venous duplex ultrasound negative for DVT This document has been electronically signed by: Lamont Rose MD on 06/10/2025 19:37:27
[2025-06-10 18:42] VITALS: BP 141/94; PULSE 70; RESP 18; TEMP 36.3; O2SAT 99; BMI 37.6
--- NOTE | 2025-06-10 18:44 | ED_ITS ---
HPI - Extremity Injury (Lower) General Stated Complaint: left leg pain x 3 days Related Data Previous Rx's ?Medication ?Instructions ?Recorded omeprazole 20 mg capsule,delayed 20 mg PO DAILY #60 ca ps 01/15/23 release buspirone 5 mg tablet 5 mg PO BID 30 days #60 tabs 03/31/25 levofloxacin 500 mg tablet 500 mg PO DAILY 4 weeks #28 tabs 05/06/25 Allergies Allergy/AdvReac Type Severity Reaction Status Date / Time No Known Allergies Allergy Verified 06/10/25 18:44 [facility] Past Medical History Medical History Degenerative disc disease at L5-S1 level [place] syndrome No known health problems No known health problems Surgical History History of esophagogastroduodenoscopy (EGD) Family History Family History Father Substance use disorder Social History Social History Housing: House Patient Tobacco Use Status: Never used Tobacco e-Cigarette/Vaping Use: Never Used Second Hand Smoke Exposure: No service: No Current occupational status: employed Current occupation: [employer] Current occupational exposures/hazards: Yes Cognitive needs: No Hearing needs: No Vision needs: No Course Course Course Narrative: This is a Rapid Medical Examination (RME) performed by Khadar De Santiago PA-C in triage. Full HPI, ROS, assessment and treatment plan per primary provider in the Main ED. Hx: 29 nyo M here for eval of atraumatic L posterior knee pain radiating into his left calf. 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 PE/vitals: ttp of L calf. strong popliteal pulse. Plan: venous duplex Discharge Plan Discharge Prescriptions: No Action buspirone 5 mg tablet 5 mg PO BID 30 Days Qty: 60 4RF levofloxacin 500 mg tablet 500 mg PO DAILY 28 Days Qty: 28 0RF omeprazole 20 mg capsule,delayed release(DR/EC) 20 mg PO DAILY Qty: 60 0RF Print Language: French
--- NOTE | 2025-06-11 00:46 | ED_ITS ---
HPI - Extremity Injury (Lower) General Chief Complaint: Extremity Injury, Lower Stated Complaint: left leg pain x 3 days Time Seen by Provider: 06/11/25 00:36 Source: patient Mode of arrival: ambulatory Limitations: no limitations History of Present Illness ED Provider: Dr. Anushka Pham HPI Narrative: Patient comes to the emergency room complaining of left-sided calf pain for 4-5 days. Patient denies any obvious injury. Patient states that he does not believe his leg is swollen. However, it is tender to palpation especially in the posterior aspect of the knee and the calf area. Related Data Previous Rx's ?Medication ?Instructions ?Recorded omeprazole 20 mg capsule,delayed 20 mg PO DAILY #60 ca ps 01/15/23 release buspirone 5 mg tablet 5 mg PO BID 30 days #60 tabs 03/31/25 levofloxacin 500 mg tablet 500 mg PO DAILY 4 weeks #28 tabs 05/06/25 cyclobenzaprine 5 mg tablet 5 mg PO TID PRN muscle spa sm #10 06/11/25 tabs naproxen 500 mg tablet 500 mg PO BID PRN pain #10 t abs 06/11/25 Allergies Allergy/AdvReac Type Severity Reaction Status Date / Time No Known Allergies Allergy Verified 06/10/25 18:44 Review of Systems Review of Systems: Constitutional : No Weight loss, No Fever, No Chills, No Night Sweats, No Fatigue, No Malaise ENT/Mouth : No Hearing loss, No Ear Pain, No Nasal Congestion, No Sinus Pain, No Hoarseness, No sore throat, No Rhinorrhea, No Swallowing Difficulty Eyes: No Eye Pain, No Swelling, No Redness, No Foreign Body, No Discharge, No Vision Changes Cardiovascular : No Chest Pain, No SOB, No Dyspnea on Exertion, No Orthopnea, No Edema, No Palpitations Respiratory : No Cough, No Sputum, No Wheezing, No Smoke Exposure, No Dyspnea Gastrointestinal : No Nausea, No Vomiting, No Diarrhea, No Constipation, No abdominal Pain, No Hematochezia, No Melena Genitourinary : no irregular bleeding, No Dysuria, No Urinary Frequency, No Hematuria, No Urinary Incontinence, No Urgency, No Flank Pain, No Urinary Flow Changes, No Hesitancy Musculoskeletal : Complaining of calf pain, No Myalgias, No Joint Swelling Skin : No Skin Lesions, No rash Neuro : No Weakness, No Numbness, No Paresthesias, No Loss of Consciousness, No Dizziness, No Headache Psych : No Anxiety/Panic, No Depression, No SI/HI/AH/VH, No Social Issues, Heme/Lymph: No Bruising, No Bleeding,No Lymphadenopathy Endocrine : No Polyuria, No Polydipsia, No Temperature Intolerance [facility] Past Medical History Medical History Degenerative disc disease at L5-S1 level [place] syndrome No known health problems No known health problems Surgical History History of esophagogastroduodenoscopy (EGD) Family History Family History Father Substance use disorder Social History Social History Housing: House Patient Tobacco Use Status: Never used Tobacco e-Cigarette/Vaping Use: Never Used Second Hand Smoke Exposure: No Advance Directives: No Advance Directives Information Provided: Yes Do you have a plan to hurt others: No Plan service: No Current occupational status: employed 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 Oriented X3. No acute distress. Eyes: Pupils equal, round and reactive to light. ENT: Pharynx normal. Neck: Normal inspection. Neck supple. No lymph nodes noted. No crepitus CVS: Normal heart rate and rhythm. Pulses normal. Normal S1 and S2 Respiratory: No respiratory distress. Breath sounds normal. No Wheezing. No rales Abdomen: Soft and nontender. No rigidity. No distention. Skin: Skin warm and dry. Normal skin color. Normal skin turgor. Extremities: No Lacerations. No Rash, no significant pain to palpation in the calf area, no palpable masses, no lower extremity edema bilaterally Neuro: Oriented X 3. No motor deficit. No sensory deficit. Moving all extremities. No slurred speech. CN 2 through 12 grossly intact Psych: calm, cooperative, normal affect Vital Signs: Vital Signs: Last Vital Signs Temp 97.4 F 06/10/25 18:42 Pulse 70 06/10/25 18:42 Resp 18 06/10/25 18:42 BP 141/94 H 06/10/25 18:42 Pulse Ox 99 06/10/25 18:42 O2 Del Method Room Air 06/10/25 18:42 BMI result Body Mass Index 37.6 Course Course Course Narrative: Course Narrative: This is a Rapid Medical Examination (RME) performed by Khadar De Santiago PA-C in triage. Full HPI, ROS, assessment and treatment plan per primary provider in the Main ED. Hx: 29 nyo M here for eval of atraumatic L posterior knee pain radiating into his left calf. 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 PE/vitals: ttp of L calf. strong popliteal pulse. Plan: venous duplex Medical Decision Making Medical Decision Making MDM Narrative: Venous ultrasound does not show any popliteal cyst or DVT. Patient relieved by the above-mentioned information. Patient states that he is feels ready to go Independent Interpretation I performed an independent interpretation of an: Ultrasound Radiology Impression Discussion of test interpretation with radiology: I have reviewed the radiologist's reading. Radiologist Impression: Left lower extremity venous duplex ultrasound Study was performed using color and spectral waveform analysis. Comparison: None Findings: Visualized deep veins are fully compressible with normal flow and augmentation. No popliteal cyst. No significant adenopathy. Impression: Left lower extremity venous duplex ultrasound negative for DVT Discharge Plan Discharge Clinical Impression: Musculoskeletal pain of left lower extremity Patient Disposition: Home, Self-Care Instructions: Leg Pain (ED) Additional Instructions: Please follow-up with your primary care physician tomorrow. If you have any worsening or new symptoms, please return to the emergency room or call 911 Prescriptions: New naproxen 500 mg tablet 500 mg PO BID PRN (Reason: pain) Qty: 10 0RF cyclobenzaprine 5 mg tablet 5 mg PO TID PRN (Reason: muscle spasm) Qty: 10 0RF Rx Instructions: Did not take this medication before working or driving. It may make you feel drowsy No Action buspirone 5 mg tablet 5 mg PO BID 30 Days Qty: 60 4RF levofloxacin 500 mg tablet 500 mg PO DAILY 28 Days Qty: 28 0RF omeprazole 20 mg capsule,delayed release(DR/EC) 20 mg PO DAILY Qty: 60 0RF Stand Alone Forms: Work/School Release Print Language: Georgian
[2025-06-11 01:08] VITALS: BP 137/92; PULSE 74; RESP 16; TEMP 36.6; O2SAT 99
== END 2025-06-11 01:09 | disposition home or self-care (01) ==
PROVIDERS: Emergency Provider Emergency Medicine
DX: M79.662 Pain in left lower leg (principal); M79.18 Myalgia, other site
CPT/HCPCS: 93971; 99282; 99284

== ENCOUNTER → 2025-06-10 18:44 | Outpatient (BNV) | payer BC, SELFPAY | PROVIDERS: Visit Provider Radiology Diagnostic Radiology | DX: M79.662 Pain in left lower leg (principal) | CPT/HCPCS: 93971 ==

== ENCOUNTER 2025-08-07 14:35 | Outpatient (AMB) | payer BC, SELFPAY ==
--- OUTSIDE RECORDS SUMMARY | 2025-08-07 14:37 | XMS_ITS ---
Author Name [facility] Organization Unknown Care Team Organization Name Specialty Phone Email Start Date End Da te [facility] 09/12/2022 4
--- NOTE | 2025-08-07 14:39 | MHC.OFFVIS ---
Intake Visit Reasons: medication f/u Intake Note: Patient is present for follow up for medication review Linezolid Urology Medication:Linezolid Antibiotic Allergy:NONE Blood Thinner:NONE Cook Seafood Required: No Accompanied by: Self / Same As Patient Allergies No Known Allergies Allergy (Verified 08/07/25 14:40) HPI Comments Details: Joselito is a pleasant male. He is a patient of Dr. Mayberry. He is seen for the following urologic conditions - urinary urgency and frequency - prostatitis Three-month follow-up Persistent symptoms Repeat Microgen Prescriptions provided Prostatitis Performed Microgen NextGen DNA sequencing from prostate specimen Enterococcus faecalis. Sensitive to Augmentin or linezolid. Had previously not responded well to Augmentin. 4 weeks linezolid Lower urinary tract symptoms Initially had presented with urinary urgency and frequency Pain towards the end of urination Presumed prostatitis Failed Flomax Evaluation completed with renal bladder ultrasound showing emptying, prostate volume 30 cc UA without evidence of red cells PFSH Medical History Degenerative disc disease at L5-S1 level [place] syndrome No known health problems No known health problems Surgical History History of esophagogastroduodenoscopy (EGD) Family History Father Substance use disorder Social History Housing: House Patient Tobacco Use Status: Never used Tobacco e-Cigarette/Vaping Use: Never Used Second Hand Smoke Exposure: No service: No Current occupational status: employed 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 Current occupational exposures/hazards: Yes Cognitive needs: No Hearing needs: No Vision needs: No Assessment & Plan Assessment & Plan (1) Dysuria: Code(s): R30.0 - Dysuria Category: Medical (2) Urinary frequency: Code(s): R35.0 - Frequency of micturition Category: Medical (3) Urinary urgency: Code(s): R39.15 - Urgency of urination Category: Medical (4) Prostatitis: Code(s): N41.9 - Inflammatory disease of prostate, unspecified Category: Medical Plan Repeat Microgen Medications: New prednisone 20 mg PO DAILY 5 tabs 0RF 5 days N41.9 - Inflammatory disease of prostate, unspecified meloxicam 15 mg PO DAILY 30 tabs 0RF 30 days N41.9 - Inflammatory disease of prostate, unspecified Patient Instructions: This note is constructed using voice recognition software. While every effort has been made to ensure accuracy capping machine operator errors may have been included. Imaging studies, laboratory and physical exam results were discussed and reviewed in detail. No major barriers to patient understanding were identified. An opportunity to ask questions regarding the treatment plan was provided. All questions were answered. The patient expressed understanding and agreement with the above treatment plan. The patient is aware they should contact our office by phone for worsening of their current condition or the appearance of new urologic symptoms. Compliance is encouraged with any medications and followup testing that is ordered. It is a privilege to participate in the urologic care of your patient. If you have any questions or concerns regarding treatment for the above conditions, or other urologic issues, please do not hesitate to contact me. The office telephone contact is [phone]. Sincerely, Dr Janes Baltazar MD, [facility] - Urology Compassionate Specialist Care for the Genitourinary System Coding Level of Care Code Est Pt Level 4 (05066) Diagnoses Dysuria R30.0 Urinary frequency R35.0 Urinary urgency R39.15 Prostatitis N41.9
== END 2025-08-07 15:12 | disposition home or self-care (01) ==
PROVIDERS: Visit Provider Urology
DX: R30.0 Dysuria (principal); R35.0 Frequency of micturition; R39.15 Urgency of urination; N41.9 Inflammatory disease of prostate, unspecified
CPT/HCPCS: 99214

== ENCOUNTER 2025-08-20 11:07 | Outpatient (AMB) | payer BC, SELFPAY ==
--- NOTE | 2025-08-20 11:07 | A.OFFVIS_ITS ---
Intake Visit Reasons: 1W/F/U Intake Note: patient presents today for: telehealth 1w follow up urology medications: meloxicam blood thinners: none Furniture Repair Technician Required: No Accompanied by: Self / Same As Patient Allergies No Known Allergies Allergy (Verified 08/20/25 11:09) HPI Comments Details: Joselito is a pleasant male. He is a patient of Dr. Mayberry. He is seen for the following urologic conditions - urinary urgency and frequency - prostatitis Telemedicine Evaluation 15 min Consultation [place] [facility] Video Follow-up after initiation of Microgen - Staphylococcus pansensitive Responding to medications Bactrim 4 month follow-up Prostatitis Required Microgen for diagnosis 08/29 Staphylococcus - pansensitive 02/27 Enterococcus faecalis. Sensitive to Augmentin or linezolid. Had previously not responded well to Augmentin. 4 weeks linezolid Lower urinary tract symptoms Initially had presented with urinary urgency and frequency Pain towards the end of urination Presumed prostatitis Failed Flomax Evaluation completed with renal bladder ultrasound showing emptying, prostate volume 30 cc UA without evidence of red cells [facility] Medical History Degenerative disc disease at L5-S1 level [place] syndrome No known health problems No known health problems Surgical History History of esophagogastroduodenoscopy (EGD) Family History Father Substance use disorder Social History Housing: House Patient Tobacco Use Status: Never used Tobacco e-Cigarette/Vaping Use: Never Used Second Hand Smoke Exposure: No service: No Current occupational status: employed 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 Current occupational exposures/hazards: Yes Cognitive needs: No Hearing needs: No Vision needs: No Review of Systems Const All systems reviewed & are unremarkable except as noted in HPI and below Denies chills and Denies fever(s) Card Reports no additional complaints and Denies syncope Resp Denies cough GI Denies abdominal pain and Denies heartburn Reports as per HPI and Denies change in libido Musc Reports no additional complaints Neuro Denies syncope Psych Denies change in libido Endo Denies change in libido Physical Exam Telemedicine evaluation Appropriate responses Regular breathing rate and rhythm HEENT Head: Yes normal to inspection Ears: hearing grossly normal bilaterally Eyes General: appearance normal, both eyes and all related structures Neck Neck: Yes normal visual inspection Chest Chest palpation & inspection: normal inspection of the chest Resp Effort & Inspection: normal respiratory effort and able to speak in complete sentences Telehealth Telehealth Telehealth Platform: [place] Location of provider rendering services: practice address Location of patient: address on file Patient Identification confirmed using: Name, : Yes Telehealth method: video Patient verbally consented to treatment: Yes Patient verbally consented to billing insurance company: Yes Patient informed of any privacy concerns related to visit: Yes Minutes spent on Phone/Video with Pt.: 15 Assessment & Plan Assessment & Plan (1) Prostatitis: Code(s): N41.9 - Inflammatory disease of prostate, unspecified Category: Medical (2) Trigonitis: Code(s): N30.30 - Trigonitis without hematuria Category: Medical Plan Four-month follow-up Patient Instructions: This note is constructed using voice recognition software. While every effort has been made to ensure accuracy primary care physician errors may have been included. Imaging studies, laboratory and physical exam results were discussed and reviewed in detail. No major barriers to patient understanding were identified. An opportunity to ask questions regarding the treatment plan was provided. All questions were answered. The patient expressed understanding and agreement with the above treatment plan. The patient is aware they should contact our office by phone for worsening of their current condition or the appearance of new urologic symptoms. Compliance is encouraged with any medications and followup testing that is ordered. It is a privilege to participate in the urologic care of your patient. If you have any questions or concerns regarding treatment for the above conditions, or other urologic issues, please do not hesitate to contact me. The office telephone contact is [phone]. Sincerely, Dr Janes Baltazar MD, [facility] - Urology Compassionate Specialist Care for the Genitourinary System Coding Level of Care Code Tele Est Pt Level 3 (44209) Diagnoses Prostatitis N41.9 Trigonitis N30.30
== END 2025-08-20 11:34 | disposition home or self-care (01) ==
LOC: HO.HUSH 11:07
PROVIDERS: Visit Provider Urology
DX: N41.9 Inflammatory disease of prostate, unspecified (principal); N30.30 Trigonitis without hematuria
CPT/HCPCS: 99213